=== PATIENT | female | born 1950 | race Caucasian/White ===

== ENCOUNTER 2016-06-04 22:58 | Emergency (ER) | payer MEDICARE, OTHER ==
[2016-06-04] MEDS ORDERED: Diltiazem 25 MG/5 ML SDV IVPUSH ONE (23:14)
[2016-06-04] MEDS ORDERED: Sodium Chloride 0.9% 1,000 ML IV SCH (23:15)
[2016-06-04 23:32] VITALS: BP 137/85
--- NOTE | 2016-06-05 00:01 | EDM.PDOC ---
ED HISTORY OF PRESENT ILLNESS - General Chief Complaint: Cardiovascular Problem Stated Complaint: HEART PROBLEM Time Seen by Provider: 06/04/16 23:00 Source: Reports: Patient, Family History Limitations: Reports: No limitations - History of Present Illness INITIAL COMMENTS - FREE TEXT/NARRATIVE: 66 years old w f with a h/o intermittant a fib came to the ed because of palpitations whic she thinks she went in a fib again. Her initial ekg showed Irr irr heart beet between 127-145. Pt denied other constitutional symptoms. No N/V/D Symptom Onset Date: 06/04/16 Symptom Onset Time: 22:30 Timing/Duration: Reports: Hour(s):, Sudden onset Severity: mild Location, General: Reports: chest Improves with: Reports: None Worsens with: Reports: None Associated Symptoms: Reports: denies other symptoms - Related Data Allergies/ADRs: Allergies Allergy/AdvReac Type Severity Reaction Status Date / Time No Known Allergies Allergy Verified 06/04/16 23:14 Home Meds: Home Meds Aspirin 325 mg PO BEDTIME 06/04/16 [History] Hydrochlorothiazide 12.5 mg PO DAILY PRN 06/04/16 [History] Social & Family History - Tobacco Use Smoking Status *Q: Never Smoker Second Hand Smoke Exposure: No - Caffeine Use Caffeine Use: Reports: Coffee - Recreational Drug Use Recreational Drug Use: No ED ROS GENERAL - Review of Systems Review Of Systems: See Below Constitutional: Reports: no symptoms HEENT: Reports: No symptoms Respiratory: Reports: No Symptoms Cardiovascular: Reports: Palpitations Endocrine: Reports: no symptoms GI/Abdominal: Reports: No symptoms : Reports: no symptoms Musculoskeletal: Reports: no symptoms Skin: Reports: no symptoms Neurological: Reports: No Symptoms Psychiatric: Reports: No symptoms Hematologic/Lymphatic: Reports: no symptoms Immunologic: Reports: no symptoms ED EXAM, GENERAL - Physical Exam Exam: See Below Exam Limited By: No limitations General Appearance: alert, WD/WN, mild distress, thin Eye Exam: bilateral eye: normal inspection Ears: normal external exam Ear Exam: bilateral ear: auricle normal Nose: normal inspection, normal mucosa Throat/Mouth: Normal inspection, Normal lips, Normal teeth Head: atraumatic, normocephalic Neck: normal inspection, supple, non-tender, full range of motion Respiratory/Chest: no respiratory distress, lungs clear, normal breath sounds Cardiovascular: irregularly irregular Peripheral Pulses: 2+: femoral (L), femoral (R) GI/Abdominal: normal bowel sounds, soft, non tender, no organomegaly (Female) Exam: Deferred Rectal (Female) Exam: Deferred Back Exam: normal inspection, full range of motion Extremities: normal inspection Neurological: alert, oriented, CN II-XII intact, normal cognition, normal gait, no motor/sensory deficits Psychiatric: normal affect, normal mood Skin Exam: Warm, Dry, Intact, Normal color, No rash Lymphatic: no adenopathy EKG INTERPRETATION EKG Date: 06/04/16 Time: 23:10 Rhythm: a-fib Rate (beats/min): 128 [place]: normal P-wave: absent QRS: normal ST-T: normal QT: normal Comparison: NA - no prior EKG Course - Vital Signs Text/Narrative:: 66 years old w f with a h/o intermittant a fib came to the ed because of palpitations whic she thinks she went in a fib again. Her initial ekg showed Irr irr heart beet between 128. Pt denied other constitutional symptoms. No N/V/ D PE: AQm fib with RVR ECG: Please see note a areli a fib with RVR Lab: potassium 3.5 Mg 2.2 Impression: Hypokalemia, A fib with RVR Tx: Potassium 40 MEQ Reexam:NSR ECG: rate 72 NSR PA 198 QT 421 QTc 461 Plan: D/C home with instructions Last Recorded V/S: Last Vital Signs Temp 36.3 C 06/04/16 23:00 Pulse 120 H 06/04/16 23:00 Resp 18 06/04/16 23:00 BP 137/85 06/04/16 23:31 Pulse Ox 100 06/04/16 23:00 - Orders/Labs/Meds Orders: Active Orders 24 hr Category Date Time Status EKG Documentation Completion [RC] ASDIRECTED Care 06/04/16 23:03 Active EKG Documentation Completion [RC] ASDIRECTED Care 06/05/16 01:23 Active Sodium Chloride 0.9% [Normal Saline] 1,000 ml Med 06/04/16 23:15 Active IV ASDIRECTED EKG 12 Lead [EK] Routine Ther 06/04/16 23:01 Ordered EKG 12 Lead [EK] Routine Ther 06/05/16 01:14 Ordered Medication Orders Sodium Chloride (Normal Saline) 1,000 mls @ 125 mls/hr IV ASDIRECTED LUAN Last Admin: 06/04/16 23:30 Dose: 125 mls/hr Labs: Laboratory Tests 06/04/16 06/04/16 06/04/16 Range/Units 23:30 23:30 23:30 WBC 6.7 (4.5-12.0) X10-3/uL RBC 4.63 (3.23-5.20) x10(6)uL Hgb 14.0 (11.5-15.5) g/dL Hct 42.6 (30.0-51.3) % MCV 92.0 (80-96) fL MCH 30.2 (27.7-33.6) pg MCHC 32.8 (32.2-35.4) g/dL RDW 13.1 (11.5-15.5) % Plt Count 290 (125-369) X10(3)uL MPV 7.8 (7.4-10.4) fL Neut % (Auto) 53.0 (46-82) % Lymph % (Auto) 36.9 (13-37) % [place] % (Auto) 7.1 (4-12) % Eos % (Auto) 2 (1.0-5.0) % Baso % (Auto) 1 (0-2) % Neut # (Auto) 3.5 (1.6-8.3) # Lymph # (Auto) 2.5 (0.6-5.0) # [place] # (Auto) 0.5 (0.0-1.3) # Eos # (Auto) 0.1 (0.0-0.8) # Baso # (Auto) 0.1 (0.0-0.2) # Sodium 141 (135-145) mmol/L Potassium 3.4 L (3.5-5.3) mmol/L Chloride 104 (100-110) mmol/L Carbon Dioxide 27 (23-29) mmol/L BUN 23 (8-23) mg/dL Creatinine 0.6 (0.6-1.3) mg/dL Est Cr Clr Drug Dosing TNP Estimated GFR (MDRD) > 60 (>60) BUN/Creatinine Ratio 38.3 H (9-20) Glucose 125 H (80-116) mg/dL Calcium 9.8 (8.6-10.2) mg/dL Magnesium 2.2 (1.8-2.5) mg/dL TSH, Ultra Sensitive 2.37 (0.4-5.5) nlU/mL Meds: Medications Generic Name Dose Route Start Last Admin Trade Name Tylerq PRN Reason Stop Dose Admin Sodium Chloride 1,000 mls @ 125 mls/hr 06/04/16 23:15 06/04/16 23:30 Normal Saline IV 125 mls/hr ASDIRECTED LUAN Administration Discontinued Medications Generic Name Dose Route Start Last Admin Trade Name Freq PRN Reason Stop Dose Admin Diltiazem HCl 20 mg 06/04/16 23:14 06/04/16 23:31 Diltiazem IVPUSH 06/04/16 23:15 20 mg ONETIME ONE Administration Potassium Chloride 40 meq 06/05/16 00:07 06/05/16 00:13 Klor-Con M20 PO 06/05/16 00:08 40 meq ONETIME ONE Administration Potassium Chloride 40 meq 06/05/16 01:25 Klor-Con M20 PO 06/05/16 01:26 ONETIME ONE Departure - Departure Time of Disposition: 01:26 Disposition: Home, Self-Care 01 Condition: good Clinical Impression: A-fib Qualifiers: Atrial fibrillation type: paroxysmal Qualified Code(s): I48.0 - Paroxysmal atrial fibrillation Referrals: PCP,Not In Area [Primary Care Provider] - Forms: ED Department Discharge Additional Instructions: Please take the potassium 40 MEQ at 6 am, Please f/u please come back if your symptoms get worse acutely. Please check the potassium level in 3 days. - My Orders Last 24 Hours: My Active Orders 06/04/16 23:01 EKG 12 Lead [EK] Routine 06/04/16 23:03 EKG Documentation Completion [RC] ASDIRECTED 06/04/16 23:15 Sodium Chloride 0.9% [Normal Saline] 1,000 ml IV ASDIRECTED 06/05/16 01:14 EKG 12 Lead [EK] Routine 06/05/16 01:23 EKG Documentation Completion [RC] ASDIRECTED - Assessment/Plan Last 24 Hours: My Active Orders 06/04/16 23:01 EKG 12 Lead [EK] Routine 06/04/16 23:03 EKG Documentation Completion [RC] ASDIRECTED 06/04/16 23:15 Sodium Chloride 0.9% [Normal Saline] 1,000 ml IV ASDIRECTED 06/05/16 01:14 EKG 12 Lead [EK] Routine 06/05/16 01:23 EKG Documentation Completion [RC] ASDIRECTED
[2016-06-05] MEDS ORDERED: Potassium Chloride 20 MEQ Tab.ER PO ONE ×2 (00:07→01:25)
== END 2016-06-05 01:35 | disposition home or self-care (01) ==
LOC: FB.ED 22:58
DX: I48.0 Paroxysmal atrial fibrillation (principal); Z79.899 Other long term (current) drug therapy; Z79.82 Long term (current) use of aspirin
CPT/HCPCS: 36415; 80048; 83735; 84443; 85025; 93005; 96361; 96374; 99285; A9270; J7040; 99284; J3490

== ENCOUNTER 2020-10-21 20:12 | Inpatient (IN) | payer MEDICARE, OTHER ==
[2020-10-21] MEDS ORDERED: Ondansetron 4 MG/2 ML SDV IVPUSH STA (20:38)
[2020-10-21] MEDS ORDERED: Ketorolac 30 MG/ML SDV IVPUSH STA (20:38)
[2020-10-21] MEDS ORDERED: Morphine 2 MG/ML SYRINGE IVPUSH STA (20:38)
[2020-10-21] MEDS ORDERED: Alum Hydroxide/Mag Hydroxide 15 ML, Lidocaine 2% 15 ML PO ONE ×2 (20:40)
[2020-10-21] MEDS ORDERED: Sodium Chloride 0.9% 1,000 ML IV SCH (20:45)
[2020-10-21] MEDS ORDERED: Iopamidol 755 Mg/ML 75 ML Bottle IV ONE (21:11)
--- NOTE | 2020-10-21 21:33 | EDM.PDOC ---
ED HPI GENERAL MEDICAL PROBLEM - General Chief Complaint: Abdominal Pain Stated Complaint: STOMACH PAIN Time Seen by Provider: 10/21/20 20:20 Source of Information: Reports: Patient, Family History Limitations: Reports: No Limitations - History of Present Illness INITIAL COMMENTS - FREE TEXT/NARRATIVE: Patient presented to the ED because of abdominal pain which started 3 days ago and got worse today. The pain is over the epigastric area,sharp, 8/10 with associated nausea but no vomiting. There is no fever or chills, no urinary symptoms. - Related Data Allergies Allergy/AdvReac Type Severity Reaction Status Date / Time No Known Allergies Allergy Verified 10/21/20 21:52 Home Meds: Home Meds .Calcium 1 dose PO DAILY 10/21/20 [History] .Cayenne Pepper 1 dose PO DAILY 10/21/20 [History] .Coq10 1 dose PO DAILY 10/21/20 [History] .Niacin 1 dose PO DAILY 10/21/20 [History] .Potassium (Otc) 1 dose PO DAILY 10/21/20 [History] .Tumeric 1 dose PO DAILY 10/21/20 [History] .Vitamin D 1 dose PO DAILY 10/21/20 [History] .Zinc 1 dose PO DAILY 10/21/20 [History] Social & Family History - Caffeine Use Caffeine Use: Reports: Coffee ED ROS GENERAL - Review of Systems Review Of Systems: See Below Constitutional: Reports: No Symptoms HEENT: Reports: No Symptoms Respiratory: Reports: No Symptoms Cardiovascular: Reports: No Symptoms Endocrine: Reports: No Symptoms GI/Abdominal: Reports: Abdominal Pain, Nausea Musculoskeletal: Reports: No Symptoms Skin: Reports: No Symptoms Neurological: Reports: No Symptoms Psychiatric: Reports: No Symptoms ED EXAM, GI/ABD - Physical Exam Exam: See Below Exam Limited By: No Limitations General Appearance: Alert, No Apparent Distress Ears: Normal External Exam, Normal [place] Nose: Normal Inspection, Normal Mucosa, No Blood Throat/Mouth: Normal Inspection, Normal Lips, Normal Teeth, Normal Gums Head: Atraumatic, Normocephalic Neck: Normal Inspection, Supple, Non-Tender, Full Range of Motion Respiratory/Chest: No Respiratory Distress, Lungs Clear, Normal Breath Sounds, No Accessory Muscle Use, Chest Non-Tender Cardiovascular: Normal Peripheral Pulses, Regular Rate, Rhythm, No Edema, No Gallop, No JVD, No Murmur, No Rub GI/Abdominal Exam: Normal Bowel Sounds, Soft, No Organomegaly, Other (Epigastric, RUQ & LUQ tenderness) Back Exam: Normal Inspection, Full Range of Motion Extremities: Normal Inspection, Normal Range of Motion, Non-Tender Neurological: Alert, Oriented, CN II-XII Intact, Normal Cognition Psychiatric: Normal Affect Course - Vital Signs Text/Narrative:: Lab/CT-abd/pelvis result was reviewed and discussed with patient NS 1 L bolus Zofran 4 mg IV x1 Toradol 30 mg IV x1 Morphine 2 mg IV x 2 doses NS @ 125ml/hr Last Recorded V/S: Last Vital Signs Temp 36.2 C 10/21/20 20:15 Pulse 81 10/21/20 20:15 Resp 18 10/21/20 20:15 BP 148/88 H 10/21/20 22:06 Pulse Ox 97 10/21/20 20:15 - Orders/Labs/Meds Orders: Active Orders 24 hr Category Date Time Status Abdomen Pelvis w Cont [CT] Stat Exams 10/21/20 20:32 Taken CORONAVIRUS COVID-19 K[place] [MOLEC] Routine Lab 10/21/20 22:55 Received CULTURE URINE [RM] Stat Lab 10/21/20 20:40 Received Sodium Chloride 0.9% [Normal Saline] 1,000 ml Med 10/21/20 20:45 Active IV ASDIRECTED Sodium Chloride 0.9% [Saline Flush] Med 10/21/20 20:32 Active 10 ml FLUSH ASDIRECTED PRN Saline Lock Insert [OM.PC] Routine Oth 10/21/20 20:32 Ordered Medication Orders Sodium Chloride (Normal Saline) 1,000 mls @ 999 mls/hr IV ASDIRECTED LUAN Last Admin: 10/21/20 21:00 Dose: 999 mls/hr Documented by: SHONA Sodium Chloride (Sodium Chloride 0.9% 10 Ml Syringe) 10 ml FLUSH ASDIRECTED PRN PRN Reason: Keep Vein Open Last Admin: 10/21/20 22:00 Dose: 10 ml Documented by: CHARLES Labs: Laboratory Tests 10/21/20 10/21/20 10/21/20 Range/Units 20:40 20:40 20:40 WBC 7.4 (3.0-10.3) x10-3/uL RBC 4.20 (3.60-5.20) x10(6)uL Hgb 13.1 (11.4-15.5) g/dL Hct 38.9 (34.2-48.2) % MCV 92.5 (76.7-100.5) fL MCH 31.2 (23.9-33.9) pg MCHC 33.7 (31.9-34.8) g/dL RDW 13.4 (12.3-16.5) % Plt Count 278 (151-488) x10(3)uL MPV 7.2 (7.1-12.4) fL Neut % (Auto) 65.5 (30.8-76.2) % Lymph % (Auto) 25.7 (18.4-52.1) % [place] % (Auto) 6.1 (4.4-15.7) % Eos % (Auto) 1.8 (0.6-8.1) % Baso % (Auto) 0.9 (0.2-1.5) % Neut # (Auto) 4.9 (1.5-6.3) x10-3/uL Lymph # (Auto) 1.9 (1.0-4.4) x10-3/uL [place] # (Auto) 0.5 (0.3-1.0) x10-3/uL Eos # (Auto) 0.1 (0.0-0.8) x10-3/uL Baso # (Auto) 0.1 (0.0-0.1) x10-3/uL Sodium 145 (135-145) mmol/L Potassium 3.8 (3.5-5.3) mmol/L Chloride 104 (100-110) mmol/L Carbon Dioxide 30 (21-32) mmol/L BUN 25 H (7-18) mg/dL Creatinine 0.9 (0.55-1.02) mg/dL Est Cr Clr Drug Dosing TNP Estimated GFR (MDRD) > 60 (>60) BUN/Creatinine Ratio 27.8 H (9-20) Glucose 118 H (80-116) mg/dL Calcium 9.7 (8.6-10.2) mg/dL Total Bilirubin 0.4 (0.1-1.3) mg/dL AST 23 (5-25) IU/L ALT 32 (12-36) U/L Alkaline Phosphatase 62 (56-112) IU/L Total Protein 7.4 (6.0-8.0) g/dL Albumin 4.0 (3.2-4.6) g/dL Globulin 3.4 g/dL Albumin/Globulin Ratio 1.2 Amylase 41 (25-115) U/L Lipase (73-393) U/L Urine Color Yellow (YELLOW) Urine Appearance Slightly cloudy (CLEAR) Urine pH 5.0 (5.0-6.5) Ur Specific [place] 1.025 (1.010-1.025) Urine Protein Negative (NEGATIVE) mg/dL Urine Glucose (UA) Normal (NORMAL) mg/dL Urine Ketones Negative (NEGATIVE) mg/dL Urine Occult Blood Moderate H (NEGATIVE) Urine Nitrite Negative (NEGATIVE) Urine Bilirubin Negative (NEGATIVE) Urine Urobilinogen Normal (NEGATIVE) mg/dL Ur Leukocyte Esterase Small H (NEGATIVE) Urine RBC 5-10 H (0-5) Urine WBC 5-10 H (0-5) Ur Squamous Epith Cells Moderate H (NS,R,O) Urine Bacteria Moderate H (NS) Urine Mucus Few H (NS) 10/21/20 Range/Units 20:40 WBC (3.0-10.3) x10-3/uL RBC (3.60-5.20) x10(6)uL Hgb (11.4-15.5) g/dL Hct (34.2-48.2) % MCV (76.7-100.5) fL MCH (23.9-33.9) pg MCHC (31.9-34.8) g/dL RDW (12.3-16.5) % Plt Count (151-488) x10(3)uL MPV (7.1-12.4) fL Neut % (Auto) (30.8-76.2) % Lymph % (Auto) (18.4-52.1) % [place] % (Auto) (4.4-15.7) % Eos % (Auto) (0.6-8.1) % Baso % (Auto) (0.2-1.5) % Neut # (Auto) (1.5-6.3) x10-3/uL Lymph # (Auto) (1.0-4.4) x10-3/uL [place] # (Auto) (0.3-1.0) x10-3/uL Eos # (Auto) (0.0-0.8) x10-3/uL Baso # (Auto) (0.0-0.1) x10-3/uL Sodium (135-145) mmol/L Potassium (3.5-5.3) mmol/L Chloride (100-110) mmol/L Carbon Dioxide (21-32) mmol/L BUN (7-18) mg/dL Creatinine (0.55-1.02) mg/dL Est Cr Clr Drug Dosing Estimated GFR (MDRD) (>60) BUN/Creatinine Ratio (9-20) Glucose (80-116) mg/dL Calcium (8.6-10.2) mg/dL Total Bilirubin (0.1-1.3) mg/dL AST (5-25) IU/L ALT (12-36) U/L Alkaline Phosphatase (56-112) IU/L Total Protein (6.0-8.0) g/dL Albumin (3.2-4.6) g/dL Globulin g/dL Albumin/Globulin Ratio Amylase (25-115) U/L Lipase 65 L (73-393) U/L Urine Color (YELLOW) Urine Appearance (CLEAR) Urine pH (5.0-6.5) Ur Specific [place] (1.010-1.025) Urine Protein (NEGATIVE) mg/dL Urine Glucose (UA) (NORMAL) mg/dL Urine Ketones (NEGATIVE) mg/dL Urine Occult Blood (NEGATIVE) Urine Nitrite (NEGATIVE) Urine Bilirubin (NEGATIVE) Urine Urobilinogen (NEGATIVE) mg/dL Ur Leukocyte Esterase (NEGATIVE) Urine RBC (0-5) Urine WBC (0-5) Ur Squamous Epith Cells (NS,R,O) Urine Bacteria (NS) Urine Mucus (NS) Meds: Medications Generic Name Dose Route Start Last Admin Trade Name Freq PRN Reason Stop Dose Admin Sodium Chloride 1,000 mls @ 999 mls/hr 10/21/20 20:45 10/21/20 21:00 Normal Saline IV 999 mls/hr ASDIRECTED LUAN Administration Sodium Chloride 10 ml 10/21/20 20:32 10/21/20 22:00 Sodium Chloride 0.9% 10 Ml Syringe FLUSH 10 ml ASDIRECTED PRN Administration Keep Vein Open Discontinued Medications Generic Name Dose Route Start Last Admin Trade Name [place] PRN Reason Stop Dose Admin Ceftriaxone Sodium Confirm 10/21/20 22:46 Ceftriaxone 1 Gm Vial Administered 10/21/20 22:47 Dose 1 gm .ROUTE .STK-MED ONE Al Hydroxide/Mg Hydroxide 15 0 ml 10/21/20 20:40 10/21/20 20:56 ml/ Lidocaine HCl 15 ml PO 10/21/20 20:41 30 ml ONETIME ONE Administration Iopamidol 75 ml 10/21/20 21:11 10/21/20 21:19 Iopamidol 755 Mg/Ml 75 Ml Bottle IV 10/21/20 21:12 75 ml ONETIME ONE Administration Ketorolac Tromethamine 30 mg 10/21/20 20:38 10/21/20 21:24 Ketorolac 30 Mg/Ml Sdv IVPUSH 10/21/20 20:39 30 mg NOW STA Administration Labetalol HCl 20 mg 10/21/20 21:50 10/21/20 21:55 Labetalol 20 Mg/4 Ml Syringe IVPUSH 10/21/20 21:51 20 mg NOW STA Administration Protocol Morphine Sulfate 2 mg 10/21/20 20:38 10/21/20 21:30 Morphine 2 Mg/Ml Syringe IVPUSH 10/21/20 20:39 2 mg NOW STA Administration Morphine Sulfate Confirm 10/21/20 22:46 Morphine 2 Mg/Ml Syringe Administered 10/21/20 22:47 Dose 2 mg .ROUTE .STK-MED ONE Ondansetron HCl 4 mg 10/21/20 20:38 10/21/20 21:11 Ondansetron 4 Mg/2 Ml Sdv IVPUSH 10/21/20 20:39 4 mg NOW STA Administration Departure - Departure Time of Disposition: 22:30 Disposition: Refer to Observation Condition: Good Clinical Impression: Abdominal pain, UTI (urinary tract infection) - Discharge Information Referrals: PCP,Not In Area [Primary Care Provider] - Forms: ED Department Discharge Sepsis Event Note (ED) - Focused Exam Vital Signs: Vital Signs Temp Pulse Resp BP Pulse Ox 10/21/20 22:06 148/88 H 10/21/20 20:15 36.2 C 81 18 194/107 H 97 - My Orders Last 24 Hours: My Active Orders 10/21/20 20:32 Abdomen Pelvis w Cont [CT] Stat Sodium Chloride 0.9% [Saline Flush] 10 ml FLUSH ASDIRECTED PRN Saline Lock Insert [OM.PC] Routine 10/21/20 20:40 CULTURE URINE [RM] Stat 10/21/20 20:45 Sodium Chloride 0.9% [Normal Saline] 1,000 ml IV ASDIRECTED 10/21/20 22:55 CORONAVIRUS COVID-19 K[facility]TON [MOLEC] Routine - Assessment/Plan Last 24 Hours: My Active Orders 10/21/20 20:32 Abdomen Pelvis w Cont [CT] Stat Sodium Chloride 0.9% [Saline Flush] 10 ml FLUSH ASDIRECTED PRN Saline Lock Insert [OM.PC] Routine 10/21/20 20:40 CULTURE URINE [RM] Stat 10/21/20 20:45 Sodium Chloride 0.9% [Normal Saline] 1,000 ml IV ASDIRECTED 10/21/20 22:55 CORONAVIRUS COVID-19 KELTON [MOLEC] Routine
[2020-10-21] MEDS ORDERED: Labetalol 20 MG/4 ML Syringe IVPUSH STA (21:50)
[2020-10-21] MEDS: Sodium Chloride 0.9% 10 ML Syringe FLUSH PRN (22:00)
[2020-10-21] MEDS: Sodium Chloride 0.9% 1,000 ML IV SCH (22:45)
[2020-10-21] MEDS ORDERED: cefTRIAXone 2 GM Vial IVPUSH ONE (22:46)
[2020-10-21] MEDS ORDERED: Morphine 2 MG/ML SYRINGE ONE (22:46)
[2020-10-21] MEDS ORDERED: cefTRIAXone 1 GM Vial ONE (22:46)
[2020-10-21] MEDS ORDERED: Enoxaparin 40 MG/0.4 ML Syringe SUBCUT SCH (23:45)
[2020-10-22] MEDS: cefTRIAXone 1 GM in Sodium Chloride 0.9% 50 ML IV SCH ×2 (00:24→07:32)
[2020-10-22] MEDS: Morphine 2 MG/ML SYRINGE IVPUSH PRN ×5 (00:26→20:28)
[2020-10-22] MEDS: Ondansetron 4 MG/2 ML SDV IV PRN ×4 (02:11→22:51)
[2020-10-22] MEDS: Sodium Chloride 0.9% 1,000 ML IV SCH ×3 (06:45→22:52)
[2020-10-22] MEDS ORDERED: cefTRIAXone 1 GM in Sodium Chloride 0.9% 50 ML IV SCH (09:00)
[2020-10-22] MEDS: Ketorolac 30 MG/ML SDV IVPUSH PRN ×2 (09:49→16:47)
--- NOTE | 2020-10-22 18:27 | PCM.HP.2 ---
H&P History of Present Illness - General Date of Service: 10/22/20 Admit Problem/Dx: Admission Diagnosis/Problem Admission Diagnosis/Problem Small bowel obstruction Source of Information: Patient, Provider History Limitations: Reports: No Limitations - History of Present Illness Initial Comments - Free Text/Narative: Mayela presented to the ED because of abdominal pain which started 3 days ago, early Tuesday am and got worse today. Has epigastric pain, describes as sharp, and twisting, rates 8/10 with associated nausea but no vomiting or diarrhea, tends to be more constipated. There is no fever or chills, no urinary symptoms. She ate yesterday and did not vomit. 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 She has precancerous polyps found on colonoscopy 09/2018, due to have repeat colonoscopy in 09/2021. No cough, shortness of breath, chest pain. She states she has had similar episodes before but she backed off on her eating and they resolved on their own without going to the hospital. Middle Abdomen Pain Score (Numeric/FACES): 4 Abdominal Pain Score (Numeric/FACES): 4 - Related Data Allergies/Adverse Reactions: Allergies Allergy/AdvReac Type Severity Reaction Status Date / Time No Known Allergies Allergy Verified 10/22/20 01:27 Home Medications: Home Meds .Calcium 1 dose PO DAILY 10/21/20 [History] .Cayenne Pepper 1 dose PO DAILY 10/21/20 [History] .Coq10 1 dose PO DAILY 10/21/20 [History] .Niacin 1 dose PO DAILY 10/21/20 [History] .Potassium (Otc) 1 dose PO DAILY 10/21/20 [History] .Tumeric 1 dose PO DAILY 10/21/20 [History] .Vitamin D 1 dose PO DAILY 10/21/20 [History] .Zinc 1 dose PO DAILY 10/21/20 [History] Aspirin 650 mg PO BEDTIME 10/22/20 [History] Coffee Xt/Phosphatidyl Serine [Neuriva Original 100-100Mg Cap] 1 cap PO DAILY 10/22/20 [History] Propylene Glycol/PEG 400/Pf [Systane 0.3-0.4% Eye Drop] 1 drop EYEBOTH Q4H PRN 10/22/20 [History] Vit C/E/Zn/Coppr/Lutein/Zeaxan [Preservision Areds 2 Softgel] 1 cap PO DAILY 10/22/20 [History] Past Medical History HEENT History: Reports: Hard of Hearing, Other (See Below) Other HEENT History: Wears bilateral hearing aides. Cardiovascular History: Reports: Afib, Other (See Below) Other Cardiovascular History: States recent cardiac work up was negative. 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 - Past Surgical History HEENT Surgical History: Reports: Tonsillectomy GI Surgical History: Reports: Appendectomy, Colonoscopy, Hernia, Abdominal, Hernia, Inguinal, Polypectomy, Other (See Below) Other GI Surgeries/Procedures: Bowel resection. Female Surgical History: Reports: Hysterectomy, Other (See Below) Other Female Surgeries/Procedures: Ovarian cyst. Social & Family History - Tobacco Use Tobacco Use Status *Q: Former Tobacco User Used Tobacco, but Quit: Yes Month/Year Tobacco Last Used: 07.27.1969 - Caffeine Use Caffeine Use: Reports: Coffee, Soda, Tea - Recreational Drug Use Recreational Drug Use: No H&P Review of Systems - Review of Systems: Review Of Systems: Comprehensive ROS is negative, except as noted in HPI. Exam - Exam Exam: See Below - Vital Signs Vital Signs: Last Vital Signs Temp 98.3 F 10/22/20 16:00 Pulse 78 10/22/20 16:00 Resp 18 10/22/20 16:00 BP 172/95 H 10/22/20 16:00 Pulse Ox 95 10/22/20 16:00 Weight: 157 lb 14.4 oz - Exam General: Alert, Oriented, Cooperative HEENT: PERRLA, EOMI, Hearing Intact, Mucosa Moist & [place] Neck: Trachea Midline Lungs: Clear to Auscultation, Normal Respiratory Effort Cardiovascular: Regular Rate, Regular Rhythm GI/Abdominal Exam: Soft, No Distention, Guarding, Tender (epigastic but also has diffuse pain), Abnormal Bowel Sounds (high pitched BS x 3, hypoactive x 1(LLQ)). No: Rebound (Female) Exam: Deferred Rectal (Female) Exam: Deferred Extremities: No Pedal Edema, Normal Capillary Refill Peripheral Pulses: 2+: Radial (L), Radial (R), Posterior Tibial (L), Posterior Tibial (R), Dorsalis Pedis (L) Skin: Warm, Dry, Intact Neurological: Cranial Nerves Intact, Normal Speech, Normal Tone - Patient Data Lab Results Last 24 hrs: Laboratory Results - last 24 hr 10/21/20 10/21/20 10/21/20 Range/Units 20:40 20:40 20:40 WBC 7.4 (3.0-10.3) x10-3/uL RBC 4.20 (3.60-5.20) x10(6)uL Hgb 13.1 (11.4-15.5) g/dL Hct 38.9 (34.2-48.2) % MCV 92.5 (76.7-100.5) fL MCH 31.2 (23.9-33.9) pg MCHC 33.7 (31.9-34.8) g/dL RDW 13.4 (12.3-16.5) % Plt Count 278 (151-488) x10(3)uL MPV 7.2 (7.1-12.4) fL Neut % (Auto) 65.5 (30.8-76.2) % Lymph % (Auto) 25.7 (18.4-52.1) % [place] % (Auto) 6.1 (4.4-15.7) % Eos % (Auto) 1.8 (0.6-8.1) % Baso % (Auto) 0.9 (0.2-1.5) % Neut # (Auto) 4.9 (1.5-6.3) x10-3/uL Lymph # (Auto) 1.9 (1.0-4.4) x10-3/uL [place] # (Auto) 0.5 (0.3-1.0) x10-3/uL Eos # (Auto) 0.1 (0.0-0.8) x10-3/uL Baso # (Auto) 0.1 (0.0-0.1) x10-3/uL Sodium 145 (135-145) mmol/L Potassium 3.8 (3.5-5.3) mmol/L Chloride 104 (100-110) mmol/L Carbon Dioxide 30 (21-32) mmol/L BUN 25 H (7-18) mg/dL Creatinine 0.9 (0.55-1.02) mg/dL Est Cr Clr Drug Dosing TNP Estimated GFR (MDRD) > 60 (>60) BUN/Creatinine Ratio 27.8 H (9-20) Glucose 118 H (80-116) mg/dL Calcium 9.7 (8.6-10.2) mg/dL Total Bilirubin 0.4 (0.1-1.3) mg/dL AST 23 (5-25) IU/L ALT 32 (12-36) U/L Alkaline Phosphatase 62 (56-112) IU/L Total Protein 7.4 (6.0-8.0) g/dL Albumin 4.0 (3.2-4.6) g/dL Globulin 3.4 g/dL Albumin/Globulin Ratio 1.2 Amylase 41 (25-115) U/L Lipase (73-393) U/L Urine Color Yellow (YELLOW) Urine Appearance Slightly cloudy (CLEAR) Urine pH 5.0 (5.0-6.5) Ur Specific [place] 1.025 (1.010-1.025) Urine Protein Negative (NEGATIVE) mg/dL Urine Glucose (UA) Normal (NORMAL) mg/dL Urine Ketones Negative (NEGATIVE) mg/dL Urine Occult Blood Moderate H (NEGATIVE) Urine Nitrite Negative (NEGATIVE) Urine Bilirubin Negative (NEGATIVE) Urine Urobilinogen Normal (NEGATIVE) mg/dL Ur Leukocyte Esterase Small H (NEGATIVE) Urine RBC 5-10 H (0-5) Urine WBC 5-10 H (0-5) Ur Squamous Epith Cells Moderate H (NS,R,O) Urine Bacteria Moderate H (NS) Urine Mucus Few H (NS) SARS-CoV-2 RNA (KELTON) (NEGATIVE) 10/21/20 10/21/20 10/22/20 Range/Units 20:40 22:55 06:15 WBC 6.2 (3.0-10.3) x10-3/uL RBC 3.99 (3.60-5.20) x10(6)uL Hgb 12.2 (11.4-15.5) g/dL Hct 37.3 (34.2-48.2) % MCV 93.5 (76.7-100.5) fL MCH 30.7 (23.9-33.9) pg MCHC 32.8 (31.9-34.8) g/dL RDW 13.5 (12.3-16.5) % Plt Count 262 (151-488) x10(3)uL MPV 7.5 (7.1-12.4) fL Neut % (Auto) 70.1 (30.8-76.2) % Lymph % (Auto) 21.3 (18.4-52.1) % [place] % (Auto) 6.5 (4.4-15.7) % Eos % (Auto) 1.4 (0.6-8.1) % Baso % (Auto) 0.7 (0.2-1.5) % Neut # (Auto) 4.4 (1.5-6.3) x10-3/uL Lymph # (Auto) 1.3 (1.0-4.4) x10-3/uL [place] # (Auto) 0.4 (0.3-1.0) x10-3/uL Eos # (Auto) 0.1 (0.0-0.8) x10-3/uL Baso # (Auto) 0.0 (0.0-0.1) x10-3/uL Sodium (135-145) mmol/L Potassium (3.5-5.3) mmol/L Chloride (100-110) mmol/L Carbon Dioxide (21-32) mmol/L BUN (7-18) mg/dL Creatinine (0.55-1.02) mg/dL Est Cr Clr Drug Dosing Estimated GFR (MDRD) (>60) BUN/Creatinine Ratio (9-20) Glucose (80-116) mg/dL Calcium (8.6-10.2) mg/dL Total Bilirubin (0.1-1.3) mg/dL AST (5-25) IU/L ALT (12-36) U/L Alkaline Phosphatase (56-112) IU/L Total Protein (6.0-8.0) g/dL Albumin (3.2-4.6) g/dL Globulin g/dL Albumin/Globulin Ratio Amylase (25-115) U/L Lipase 65 L (73-393) U/L Urine Color (YELLOW) Urine Appearance (CLEAR) Urine pH (5.0-6.5) Ur Specific [place] (1.010-1.025) Urine Protein (NEGATIVE) mg/dL Urine Glucose (UA) (NORMAL) mg/dL Urine Ketones (NEGATIVE) mg/dL Urine Occult Blood (NEGATIVE) Urine Nitrite (NEGATIVE) Urine Bilirubin (NEGATIVE) Urine Urobilinogen (NEGATIVE) mg/dL Ur Leukocyte Esterase (NEGATIVE) Urine RBC (0-5) Urine WBC (0-5) Ur Squamous Epith Cells (NS,R,O) Urine Bacteria (NS) Urine Mucus (NS) SARS-CoV-2 RNA (KELTON) Negative (NEGATIVE) 10/22/20 Range/Units 06:15 WBC (3.0-10.3) x10-3/uL RBC (3.60-5.20) x10(6)uL Hgb (11.4-15.5) g/dL Hct (34.2-48.2) % MCV (76.7-100.5) fL MCH (23.9-33.9) pg MCHC (31.9-34.8) g/dL RDW (12.3-16.5) % Plt Count (151-488) x10(3)uL MPV (7.1-12.4) fL Neut % (Auto) (30.8-76.2) % Lymph % (Auto) (18.4-52.1) % [place] % (Auto) (4.4-15.7) % Eos % (Auto) (0.6-8.1) % Baso % (Auto) (0.2-1.5) % Neut # (Auto) (1.5-6.3) x10-3/uL Lymph # (Auto) (1.0-4.4) x10-3/uL [place] # (Auto) (0.3-1.0) x10-3/uL Eos # (Auto) (0.0-0.8) x10-3/uL Baso # (Auto) (0.0-0.1) x10-3/uL Sodium 147 H (135-145) mmol/L Potassium 3.7 (3.5-5.3) mmol/L Chloride 109 D (100-110) mmol/L Carbon Dioxide 30 (21-32) mmol/L BUN 18 (7-18) mg/dL Creatinine 0.8 (0.55-1.02) mg/dL Est Cr Clr Drug Dosing 57.20 Estimated GFR (MDRD) > 60 (>60) BUN/Creatinine Ratio 22.5 H (9-20) Glucose 122 H (80-116) mg/dL Calcium 8.6 (8.6-10.2) mg/dL Total Bilirubin (0.1-1.3) mg/dL AST (5-25) IU/L ALT (12-36) U/L Alkaline Phosphatase (56-112) IU/L Total Protein (6.0-8.0) g/dL Albumin (3.2-4.6) g/dL Globulin g/dL Albumin/Globulin Ratio Amylase (25-115) U/L Lipase (73-393) U/L Urine Color (YELLOW) Urine Appearance (CLEAR) Urine pH (5.0-6.5) Ur Specific [place] (1.010-1.025) Urine Protein (NEGATIVE) mg/dL Urine Glucose (UA) (NORMAL) mg/dL Urine Ketones (NEGATIVE) mg/dL Urine Occult Blood (NEGATIVE) Urine Nitrite (NEGATIVE) Urine Bilirubin (NEGATIVE) Urine Urobilinogen (NEGATIVE) mg/dL Ur Leukocyte Esterase (NEGATIVE) Urine RBC (0-5) Urine WBC (0-5) Ur Squamous Epith Cells (NS,R,O) Urine Bacteria (NS) Urine Mucus (NS) SARS-CoV-2 RNA (K[place]TON) (NEGATIVE) Result Diagrams: 10/22/20 06:15 10/22/20 06:15 Jamel Results Last 24 hrs: Microbiology 10/21/20 20:40 Urine Culture - Preliminary Urine, Clean Catch MIXED POSITIVE YOU DAY 1 Sepsis Event Note - Evaluation Sepsis Screening Result: No Definite Risk - Focused Exam Vital Signs: Vital Signs Temp Pulse Resp BP Pulse Ox 10/22/20 16:00 98.3 F 78 18 172/95 H 95 10/22/20 12:00 98.4 F 75 16 153/48 H 95 10/22/20 08:00 97.5 F 74 16 160/83 H 96 *Q Meaningful Use (ADM) - VTE Risk Assess *Q Each Risk Factor Represents 1 Point: None Total Score 1 Point Risk Factors: 0 Each Risk Factor Represents 2 Points: Age 60 - 74 Years Total Score 2 Point Risk Factors: 2 Each Risk Factor Represents 3 Points: None Total Score 3 Point Risk Factors: 0 Each Risk Factor Represents 5 Points: None Total Score 5 Point Risk Factors: 0 Venous Thromboembolism Risk Factor Score *Q: 2 - Problem List (1) Partial small bowel obstruction SNOMED Code(s): 704061719 ICD Code: K56.600 - PARTIAL INTESTINAL OBSTRUCTION, UNSPECIFIED TO CAUSE Status: Acute Current Visit: Yes (2) Abdominal pain SNOMED Code(s): 46229795 ICD Code: R10.9 - UNSPECIFIED ABDOMINAL PAIN Status: Acute Current Visit: Yes (3) UTI (urinary tract infection) SNOMED Code(s): 01346279 ICD Code: N39.0 - URINARY TRACT INFECTION, SITE NOT SPECIFIED Status: Ruled-out Current Visit: Yes Problem Details: UC grew mixed gram positive you, false positive UA. Discontinue Rocephin. (4) A-fib SNOMED Code(s): 71464674 ICD Code: I48.91 - UNSPECIFIED ATRIAL FIBRILLATION Status: Chronic Current Visit: No Qualifiers: Atrial fibrillation type: paroxysmal Qualified Code(s): I48.0 - Paroxysmal atrial fibrillation (5) GERD (gastroesophageal reflux disease) SNOMED Code(s): 998899470 ICD Code: K21.9 - GASTRO-ESOPHAGEAL REFLUX DISEASE WITHOUT ESOPHAGITIS Status: Chronic Current Visit: No (6) S/P hysterectomy with oophorectomy SNOMED Code(s): 859240063 ICD Code: Z90.710 - ACQUIRED ABSENCE OF BOTH CERVIX AND UTERUS; Z90.721 - ACQUIRED ABSENCE OF OVARIES, UNILATERAL Status: Chronic Current Visit: Yes (7) History of Meckel's diverticulum SNOMED Code(s): 238956420 ICD Code: Z87.19 - PERSONAL HISTORY OF OTHER DISEASES OF THE DIGESTIVE SYSTEM Status: Chronic Current Visit: Yes (8) History of bowel resection SNOMED Code(s): 922660647 ICD Code: Z90.49 - ACQUIRED ABSENCE OF OTHER SPECIFIED PARTS OF DIGESTIVE TRACT Status: Chronic Current Visit: Yes (9) History of appendectomy SNOMED Code(s): 676085345 ICD Code: Z90.49 - ACQUIRED ABSENCE OF OTHER SPECIFIED PARTS OF DIGESTIVE TRACT Status: Chronic Current Visit: Yes (10) History of benign ovarian tumor SNOMED Code(s): 611247565 ICD Code: Z86.018 - PERSONAL HISTORY OF OTHER BENIGN NEOPLASM Status: Chronic Current Visit: Yes Problem List Initiated/Reviewed/Updated: Yes Orders Last 24hrs: Active Orders 24 hr Category Date Time Status Patient Status [ADT] Routine ADT 10/21/20 23:39 Active Intake and Output [RC] 06,14,22 Care 10/21/20 23:41 Active Notify Provider Consults [RC] ASDIRECTED Care 10/22/20 08:53 Active Oxygen Therapy [RC] PRN Care 10/21/20 23:39 Active Pulse Oximetry [RC] PRN Care 10/21/20 23:41 Active Up With Assistance [RC] ASDIRECTED Care 10/21/20 23:39 Active Vital Signs [RC] 00,04,08,12,16,20 Care 10/21/20 23:39 Active Consult to Physician [CONS] Routine Cons 10/22/20 08:53 Ordered Nothing per Oral Now Diet [DIET] Diet 10/22/20 Breakfast Ordered Abdomen Pelvis w Cont [CT] Stat Exams 10/21/20 20:32 Taken CULTURE URINE [RM] Stat Lab 10/21/20 20:40 Results Enoxaparin [Lovenox] Med 10/23/20 08:00 Active 40 mg SUBCUT Q24H Ketorolac [Toradol] Med 10/22/20 08:45 Active 30 mg IVPUSH Q6H PRN Morphine Med 10/21/20 23:39 Active 2 mg IVPUSH Q2H PRN Ondansetron [Zofran] Med 10/21/20 23:39 Active 4 mg IV Q4H PRN Sodium Chloride 0.9% [Normal Saline] 1,000 ml Med 10/21/20 23:45 Active IV ASDIRECTED Sodium Chloride 0.9% [Saline Flush] Med 10/21/20 20:32 Active 10 ml FLUSH ASDIRECTED PRN cefTRIAXone [Rocephin] Med 10/22/20 23:00 Active 1 gm IVPUSH Q24H Saline Lock Insert [OM.PC] Routine Oth 10/21/20 20:32 Ordered Resuscitation Status Routine Resus Stat 10/21/20 23:39 Ordered Medication Orders Ceftriaxone Sodium (Ceftriaxone 1 Gm Vial) 1 gm IVPUSH Q24H LUAN Enoxaparin Sodium (Enoxaparin 40 Mg/0.4 Ml Syringe) 40 mg SUBCUT Q24H LUAN Sodium Chloride (Normal Saline) 1,000 mls @ 125 mls/hr IV ASDIRECTED LUAN Last Admin: 10/22/20 14:54 Dose: 125 mls/hr Documented by: Infusion: 10/22/20 14:45 Dose: 125 mls/hr Documented by: Admin: 10/22/20 06:45 Dose: 125 mls/hr Documented by: Infusion: 10/22/20 06:45 Dose: 125 mls/hr Documented by: Admin: 10/21/20 22:45 Dose: 125 mls/hr Documented by: CHARLES Ketorolac Tromethamine (Ketorolac 30 Mg/Ml Sdv) 30 mg IVPUSH Q6H PRN PRN Reason: Pain (moderate 4-6) Stop: 10/27/20 08:45 Last Admin: 10/22/20 16:47 Dose: 30 mg Documented by: Admin: 10/22/20 09:49 Dose: 30 mg Documented by: LUDY Morphine Sulfate (Morphine 2 Mg/Ml Syringe) 2 mg IVPUSH Q2H PRN PRN Reason: Pain (severe 7-10) Last Admin: 10/22/20 13:35 Dose: 2 mg Documented by: Admin: 10/22/20 04:48 Dose: 2 mg Documented by: Admin: 10/22/20 02:47 Dose: 2 mg Documented by: Admin: 10/22/20 00:26 Dose: 2 mg Documented by: DEB Ondansetron HCl (Ondansetron 4 Mg/2 Ml Sdv) 4 mg IV Q4H PRN PRN Reason: Nausea/Vomiting Last Admin: 10/22/20 16:47 Dose: 4 mg Documented by: Admin: 10/22/20 09:50 Dose: 4 mg Documented by: Admin: 10/22/20 02:11 Dose: 4 mg Documented by: DEB Sodium Chloride (Sodium Chloride 0.9% 10 Ml Syringe) 10 ml FLUSH ASDIRECTED PRN PRN Reason: Keep Vein Open Last Admin: 10/21/20 22:00 Dose: 10 ml Documented by: CHARLES Assessment/Plan Comment:: 1. Admit for observation for partial small bowel obstruction. 2. SBO: NPO except ice chips. Ambulate. Consult Dr Mauricio. Toradol 30 mg IV q6h prn, Morphine 2 mg IV q2h prn. Discussed Tylenol suppositories but pt would like to hold off. NS at 125 ml/hr. Place NG if nausea worsens or vomiting. 3. UTI ruled out: UA showed blood, small LE, 5-10 RBC & WBC but moderate epithelials & bacteria, pt admits she forgot to clean with sanitizing wipe prior to collection. UC grew mixed normal you so false positive UA from skin contam ination. Discontinue Rocephin. 4. Diet: NPO except ice chips. Advance as tolerated. 5. Activity: ambulate. 6. DVT prophylaxis: Lovenox 40 mg sq daily. 7. CODE STATUS: FULL. 8. Discharge plannin-48 hours of bowel rest, advance diet as tolerated. - Mortality Measure Prognosis:: Good
[2020-10-22] MEDS ORDERED: Morphine 2 MG/ML SYRINGE IVPUSH ONE (19:22)
[2020-10-22] MEDS ORDERED: cefTRIAXone 1 GM Vial IVPUSH SCH (23:00)
--- NOTE | 2020-10-23 00:18 | CONS ---
DATE OF CONSULTATION: 10/22/2020 PHYSICIAN REQUESTING CONSULT: Krista Pan MD. HISTORY: This 70-year-old female developed upper abdominal pain 2 days ago. This persisted while at home and caused her presentation to the emergency room last night. At that time, she was evaluated. She did get some relief with pain medication. Laboratory studies were performed and were unremarkable. CT scan of the abdomen was performed and this showed findings consistent with a mid small bowel partial small bowel obstruction. The patient was admitted. Since admission, she says she does continue to have mid upper abdominal pain. It has decreased slightly since admission, but does persist. She also notes that she did have a bowel movement yesterday morning, but has not had any stool or flatus since that time. The patient does recall approximately 5 episodes over the last year, which have been somewhat similar to this. All of these have resolved while at home. This is the first time that she has required hospitalization. PAST MEDICAL HISTORY: Her past medical history does include a history of prior surgeries. These include a hysterectomy with removal of appendix and Meckel's diverticulum. Subsequent to that, she did have removal of an ovary and also repair of a hernia. She also has had a previous colonoscopy about 2 years ago, which noted polyps. The patient is otherwise generally healthy. MEDICATIONS: She does not take any routine prescription medications. ALLERGIES: She has no known drug allergies. FAMILY HISTORY: Noncontributory. SOCIAL HISTORY: The patient is . 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 REVIEW OF SYSTEMS: She has not been experiencing any recent cough, cold, or sore throat symptoms. No chest pain or palpitations. She has noted some constipation, but otherwise, bowel function has been satisfactory. PHYSICAL EXAMINATION: VITAL SIGNS: Temperature 98.4, pulse 75, blood pressure is 153/48, weight is 157 pounds. GENERAL: The patient is an alert, adult female. She is currently in no acute distress. HEENT: Head is normocephalic. No scleral icterus. No cervical masses. HEART: Regular without murmur. LUNGS: Clear. ABDOMEN: Shows minimal distention diffusely. There is mild direct tenderness to palpation. No guarding is noted. I do not feel any abdominal masses or hepatic or splenic enlargement. EXTREMITIES: No obvious deformity. IMPRESSION: Partial small bowel obstruction, likely secondary to adhesions. RECOMMENDATIONS: We will observe at this time. Encourage the patient to ambulate. Did discuss possibility of NG tube decompression to help with some of her abdominal discomfort, but she declines this at this time. We will follow the patient's clinical course, which will determine further workup and treatment. /[id number] TILA/SAI
[2020-10-23] MEDS: Ketorolac 30 MG/ML SDV IVPUSH PRN ×2 (05:15→17:35)
[2020-10-23] MEDS: Sodium Chloride 0.9% 1,000 ML IV SCH ×2 (07:03→17:35)
[2020-10-23] MEDS ORDERED: Acetaminophen 650 MG Supp RECTAL PRN (08:14)
[2020-10-23] MEDS: Morphine 4 MG/ML VIAL IVPUSH PRN ×2 (10:09→20:25)
[2020-10-23] MEDS: Ondansetron 4 MG/2 ML SDV IV PRN ×2 (10:10→17:35)
[2020-10-23] MEDS: Enoxaparin 40 MG/0.4 ML Syringe SUBCUT SCH (10:11)
--- NOTE | 2020-10-23 13:38 | PCM.PN ---
- General Info Date of Service: 10/23/20 Subjective Update: Oksana has passed gas but no bowel movement yet. Still diffuse abdominal pain, no nausea or vomiting. Blood pressures are high, states she has been tried on Lisinopril 2.5 and HCTZ 12.5 mg but had cough with Lisinopril and HCTZ dropped her pressures below 100. She states pain is not controlled with current meds. Dr Mauricio saw early this am, still wants NPO with ice chips, not to advance diet. She declined NG. - Patient Data Vitals - Most Recent: Last Vital Signs Temp 98.9 F 10/23/20 08:00 Pulse 71 10/23/20 08:00 Resp 18 10/23/20 08:00 BP 164/81 H 10/23/20 08:00 Pulse Ox 95 10/23/20 08:00 Weight - Most Recent: 157 lb 14.4 oz I&O - Last 24 Hours: Intake & Output 10/22/20 10/23/20 10/23/20 22:59 06:59 14:59 Intake Total 1049 978 Output Total 375 Balance 674 978 Jamel Results Last 24 Hours: Microbiology 10/21/20 20:40 Urine Culture - Preliminary Urine, Clean Catch MIXED POSITIVE YOU DAY 1 Med Orders - Current: Current Medications Acetaminophen (Acetaminophen 650 Mg Supp) 650 mg RECTAL Q4H PRN PRN Reason: Pain (moderate 4-6) Enoxaparin Sodium (Enoxaparin 40 Mg/0.4 Ml Syringe) 40 mg SUBCUT Q24H [facility] Last Admin: 10/23/20 10:11 Dose: 40 mg Documented by: Sodium Chloride (Normal Saline) 1,000 mls @ 75 mls/hr IV ASDIRECTED [facility] Last Infusion: 10/23/20 10:00 Dose: 75 mls/hr Documented by: Ketorolac Tromethamine (Ketorolac 30 Mg/Ml Sdv) 30 mg IVPUSH Q6H PRN PRN Reason: Pain (moderate 4-6) Stop: 10/27/20 08:45 Last Admin: 10/23/20 05:15 Dose: 30 mg Documented by: Morphine Sulfate (Morphine 4 Mg/Ml Vial) 4 mg IVPUSH Q2H PRN PRN Reason: Pain (severe 7-10) Last Admin: 10/23/20 10:09 Dose: 4 mg Documented by: Ondansetron HCl (Ondansetron 4 Mg/2 Ml Sdv) 4 mg IV Q4H PRN PRN Reason: Nausea/Vomiting Last Admin: 10/23/20 10:10 Dose: 4 mg Documented by: Sodium Chloride (Sodium Chloride 0.9% 10 Ml Syringe) 10 ml FLUSH ASDIRECTED PRN PRN Reason: Keep Vein Open Last Admin: 10/21/20 22:00 Dose: 10 ml Documented by: Discontinued Medications Ceftriaxone Sodium (Ceftriaxone 1 Gm Vial) Confirm Administered Dose 1 gm .ROUTE .STK-MED ONE Stop: 10/21/20 22:47 Last Admin: 10/21/20 23:45 Dose: 1 gm Documented by: Ceftriaxone Sodium (Ceftriaxone 1 Gm Vial) 1 gm IVPUSH Q24H [facility] Ceftriaxone Sodium (Ceftriaxone 2 Gm Vial) 1 gm IVPUSH ONETIME ONE Stop: 10/21/20 22:47 Last Admin: 10/22/20 19:29 Dose: 1 gm Documented by: Al Hydroxide/Mg Hydroxide 15 (ml/ Lidocaine HCl 15 ml) 0 ml PO ONETIME ONE Stop: 10/21/20 20:41 Last Admin: 10/21/20 20:56 Dose: 30 ml Documented by: Enoxaparin Sodium (Enoxaparin 40 Mg/0.4 Ml Syringe) 40 mg SUBCUT Q24H [facility] Last Admin: 10/22/20 00:26 Dose: 40 mg Documented by: Sodium Chloride (Normal Saline) 1,000 mls @ 999 mls/hr IV ASDIRECTED [facility] Last Admin: 10/21/20 21:00 Dose: 999 mls/hr Documented by: Ceftriaxone Sodium 1 gm/ (Sodium Chloride) 50 mls @ 200 mls/hr IV Q24H [facility] Stop: 10/21/20 23:59 Last Admin: 10/22/20 07:32 Dose: Not Given Documented by: Iopamidol (Iopamidol 755 Mg/Ml 75 Ml Bottle) 75 ml IV ONETIME ONE Stop: 10/21/20 21:12 Last Admin: 10/21/20 21:19 Dose: 75 ml Documented by: Ketorolac Tromethamine (Ketorolac 30 Mg/Ml Sdv) 30 mg IVPUSH NOW STA Stop: 10/21/20 20:39 Last Admin: 10/21/20 21:24 Dose: 30 mg Documented by: Labetalol HCl (Labetalol 20 Mg/4 Ml Syringe) 20 mg IVPUSH NOW STA; Protocol Stop: 10/21/20 21:51 Last Admin: 10/21/20 21:55 Dose: 20 mg Documented by: Morphine Sulfate (Morphine 2 Mg/Ml Syringe) 2 mg IVPUSH NOW STA Stop: 10/21/20 20:39 Last Admin: 10/21/20 21:30 Dose: 2 mg Documented by: Morphine Sulfate (Morphine 2 Mg/Ml Syringe) Confirm Administered Dose 2 mg .ROUTE .STK-MED ONE Stop: 10/21/20 22:47 Last Admin: 10/21/20 22:44 Dose: 2 mg Documented by: Morphine Sulfate (Morphine 2 Mg/Ml Syringe) 2 mg IVPUSH Q2H PRN PRN Reason: Pain (severe 7-10) Last Admin: 10/22/20 20:28 Dose: 2 mg Documented by: Morphine Sulfate (Morphine 2 Mg/Ml Syringe) 2 mg IVPUSH ONETIME ONE Stop: 10/22/20 19:23 Last Admin: 10/21/20 22:46 Dose: 2 mg Documented by: Ondansetron HCl (Ondansetron 4 Mg/2 Ml Sdv) 4 mg IVPUSH NOW STA Stop: 10/21/20 20:39 Last Admin: 10/21/20 21:11 Dose: 4 mg Documented by: - Exam General: Alert, Oriented, Cooperative, No Acute Distress Lungs: Clear to Auscultation, Normal Respiratory Effort Cardiovascular: Regular Rate, Regular Rhythm GI/Abdominal Exam: Soft, No Distention, Guarding, Tender (diffuse), Abnormal Bowel Sounds (high-pitched BS x 3, hypoactive x 1(LLQ)). No: Rebound - Patient Data Result Diagrams: 10/22/20 06:15 10/22/20 06:15 Jamel Results Last 24 hrs: Microbiology 10/21/20 20:40 Urine Culture - Preliminary Urine, Clean Catch MIXED POSITIVE YOU DAY 1 Sepsis Event Note - Evaluation Sepsis Screening Result: No Definite Risk - Focused Exam Vital Signs: Vital Signs Temp Pulse Resp BP Pulse Ox 10/23/20 08:00 98.9 F 71 18 164/81 H 95 10/23/20 04:45 98.5 F 78 18 184/96 H 95 - Problem List & Annotations (1) Partial small bowel obstruction SNOMED Code(s): 893037773 Code(s): K56.600 - PARTIAL INTESTINAL OBSTRUCTION, UNSPECIFIED TO CAUSE Status: Acute Current Visit: Yes (2) Abdominal pain SNOMED Code(s): 29383211 Code(s): R10.9 - UNSPECIFIED ABDOMINAL PAIN Status: Acute Current Visit: Yes (3) UTI (urinary tract infection) SNOMED Code(s): 84067396 Code(s): N39.0 - URINARY TRACT INFECTION, SITE NOT SPECIFIED Status: Ruled-out Current Visit: Yes Annotation/Comment:: UC grew mixed gram positive you, false positive UA. Discontinue Rocephin. (4) A-fib SNOMED Code(s): 17346376 Code(s): I48.91 - UNSPECIFIED ATRIAL FIBRILLATION Status: Chronic Current Visit: No Qualifiers: Atrial fibrillation type: paroxysmal Qualified Code(s): I48.0 - Paroxysmal atrial fibrillation (5) GERD (gastroesophageal reflux disease) SNOMED Code(s): 372798802 Code(s): K21.9 - GASTRO-ESOPHAGEAL REFLUX DISEASE WITHOUT ESOPHAGITIS Status: Chronic Current Visit: No (6) S/P hysterectomy with oophorectomy SNOMED Code(s): 163769257 Code(s): Z90.710 - ACQUIRED ABSENCE OF BOTH CERVIX AND UTERUS; Z90.721 - ACQUIRED ABSENCE OF OVARIES, UNILATERAL Status: Chronic Current Visit: Yes (7) History of Meckel's diverticulum SNOMED Code(s): 823544024 Code(s): Z87.19 - PERSONAL HISTORY OF OTHER DISEASES OF THE DIGESTIVE SYSTEM Status: Chronic Current Visit: Yes (8) History of bowel resection SNOMED Code(s): 795006965 Code(s): Z90.49 - ACQUIRED ABSENCE OF OTHER SPECIFIED PARTS OF DIGESTIVE TRACT Status: Chronic Current Visit: Yes (9) History of appendectomy SNOMED Code(s): 901810766 Code(s): Z90.49 - ACQUIRED ABSENCE OF OTHER SPECIFIED PARTS OF DIGESTIVE TRACT Status: Chronic Current Visit: Yes (10) History of benign ovarian tumor SNOMED Code(s): 202042860 Code(s): Z86.018 - PERSONAL HISTORY OF OTHER BENIGN NEOPLASM Status: Chronic Current Visit: Yes - Problem List Review Problem List Initiated/Reviewed/Updated: Yes - My Orders Last 24 Hours: My Active Orders 10/22/20 18:35 Activity as Tolerated [RC] .Routine Ambulate [RC] ASDIRECTED 10/23/20 08:00 Enoxaparin [Lovenox] 40 mg SUBCUT Q24H 10/23/20 08:14 Acetaminophen [Tylenol] 650 mg RECTAL Q4H PRN 10/23/20 08:29 Morphine 4 mg IVPUSH Q2H PRN 10/23/20 10:07 Patient Status [ADT] Routine - Plan Plan:: 1. SBO: NPO except ice chips. Ambulate. Consult Dr Mauricio. Toradol 30 mg IV q6h prn, increase Morphine 4 mg IV q2h prn. Tylenol suppositories as needed. Decrease NS to 75 ml/hr. 2. Diet: NPO except ice chips. 3. Discharge plannin-48 hours of bowel rest, diet per Dr Mauricio, she will be 48 hrs observation at midnight, would not go home today so changed to inpatient status.
[2020-10-23] MEDS: Sodium Chloride 0.9% 10 ML Syringe FLUSH PRN (17:35)
--- NOTE | 2020-10-23 18:29 | PCM.PN ---
- General Info Date of Service: 10/23/20 Admission Dx/Problem (Free Text): Small bowel obstruction Subjective Update: Patient may have passed small amount of flatus today but no BM Functional Status: Reports: Other (still will generalized abdominal pain with little change) - Review of Systems Pulmonary: Reports: No Symptoms Gastrointestinal: Reports: Flatus (minimal), Nausea (Mild occasional). Denies: Vomiting Genitourinary: Reports: No Symptoms - Patient Data Vitals - Most Recent: Last Vital Signs Temp 98.2 F 10/23/20 12:00 Pulse 72 10/23/20 12:00 Resp 16 10/23/20 12:00 BP 155/78 H 10/23/20 12:00 Pulse Ox 95 10/23/20 12:00 Weight - Most Recent: 157 lb 14.4 oz I&O - Last 24 Hours: Intake & Output 10/23/20 10/23/20 10/23/20 06:59 14:59 22:59 Intake Total 978 575 Balance 978 575 Jamel Results Last 24 Hours: Microbiology 10/21/20 20:40 Urine Culture - Final Urine, Clean Catch MIXED POSITIVE [facility] DAY 2 Med Orders - Current: Current Medications Acetaminophen (Acetaminophen 650 Mg Supp) 650 mg RECTAL Q4H PRN PRN Reason: Pain (moderate 4-6) Enoxaparin Sodium (Enoxaparin 40 Mg/0.4 Ml Syringe) [address] [facility] Last Admin: 10/23/20 10:11 Dose: 40 mg Documented by: Sodium Chloride (Normal Saline) 1,000 mls @ 75 mls/hr IV ASDIRECTED [facility] Last Admin: 10/23/20 17:35 Dose: 75 mls/hr Documented by: Ketorolac Tromethamine (Ketorolac 30 Mg/Ml Sdv) 30 mg IVPUSH Q6H PRN PRN Reason: Pain (moderate 4-6) Stop: 10/27/20 08:45 Last Admin: 10/23/20 17:35 Dose: 30 mg Documented by: Morphine Sulfate (Morphine 4 Mg/Ml Vial) 4 mg IVPUSH Q2H PRN PRN Reason: Pain (severe 7-10) Last Admin: 10/23/20 10:09 Dose: 4 mg Documented by: Ondansetron HCl (Ondansetron 4 Mg/2 Ml Sdv) 4 mg IV Q4H PRN PRN Reason: Nausea/Vomiting Last Admin: 10/23/20 17:35 Dose: 4 mg Documented by: Sodium Chloride (Sodium Chloride 0.9% 10 Ml Syringe) 10 ml FLUSH ASDIRECTED PRN PRN Reason: Keep Vein Open Last Admin: 10/23/20 17:35 Dose: 10 ml Documented by: Discontinued Medications Ceftriaxone Sodium (Ceftriaxone 1 Gm Vial) Confirm Administered Dose 1 gm .ROUTE .STK-MED ONE Stop: 10/21/20 22:47 Last Admin: 10/21/20 23:45 Dose: 1 gm Documented by: Ceftriaxone Sodium (Ceftriaxone 1 Gm Vial) [address] [facility] Ceftriaxone Sodium (Ceftriaxone 2 Gm Vial) 1 gm IVPUSH ONETIME ONE Stop: 10/21/20 22:47 Last Admin: 10/22/20 19:29 Dose: 1 gm Documented by: Al Hydroxide/Mg Hydroxide 15 (ml/ Lidocaine HCl 15 ml) 0 ml PO ONETIME ONE Stop: 10/21/20 20:41 Last Admin: 10/21/20 20:56 Dose: 30 ml Documented by: Enoxaparin Sodium (Enoxaparin 40 Mg/0.4 Ml Syringe) [address] [facility] Last Admin: 10/22/20 00:26 Dose: 40 mg Documented by: Sodium Chloride (Normal Saline) 1,000 mls @ 999 mls/hr IV ASDIRECTED [facility] Last Admin: 10/21/20 21:00 Dose: 999 mls/hr Documented by: Ceftriaxone Sodium 1 gm/ (Sodium Chloride) 50 mls @ 200 mls/hr IV Q24H [facility] Stop: 10/21/20 23:59 Last Admin: 10/22/20 07:32 Dose: Not Given Documented by: Iopamidol (Iopamidol 755 Mg/Ml 75 Ml Bottle) 75 ml IV ONETIME ONE Stop: 10/21/20 21:12 Last Admin: 10/21/20 21:19 Dose: 75 ml Documented by: Ketorolac Tromethamine (Ketorolac 30 Mg/Ml Sdv) 30 mg IVPUSH NOW STA Stop: 10/21/20 20:39 Last Admin: 10/21/20 21:24 Dose: 30 mg Documented by: Labetalol HCl (Labetalol 20 Mg/4 Ml Syringe) 20 mg IVPUSH NOW STA; Protocol Stop: 10/21/20 21:51 Last Admin: 10/21/20 21:55 Dose: 20 mg Documented by: Morphine Sulfate (Morphine 2 Mg/Ml Syringe) 2 mg IVPUSH NOW STA Stop: 10/21/20 20:39 Last Admin: 10/21/20 21:30 Dose: 2 mg Documented by: Morphine Sulfate (Morphine 2 Mg/Ml Syringe) Confirm Administered Dose 2 mg .ROUTE .STK-MED ONE Stop: 10/21/20 22:47 Last Admin: 10/21/20 22:44 Dose: 2 mg Documented by: Morphine Sulfate (Morphine 2 Mg/Ml Syringe) 2 mg IVPUSH Q2H PRN PRN Reason: Pain (severe 7-10) Last Admin: 10/22/20 20:28 Dose: 2 mg Documented by: Morphine Sulfate (Morphine 2 Mg/Ml Syringe) 2 mg IVPUSH ONETIME ONE Stop: 10/22/20 19:23 Last Admin: 10/21/20 22:46 Dose: 2 mg Documented by: Ondansetron HCl (Ondansetron 4 Mg/2 Ml Sdv) 4 mg IVPUSH NOW STA Stop: 10/21/20 20:39 Last Admin: 10/21/20 21:11 Dose: 4 mg Documented by: - Exam General: Alert, Oriented GI/Abdominal Exam: Distended (moderate), Tender (moderate diffusely). No: Guarding, Mass - Patient Data Result Diagrams: 10/22/20 06:15 10/22/20 06:15 Jamel Results Last 24 hrs: Microbiology 10/21/20 20:40 Urine Culture - Final Urine, Clean Catch MIXED POSITIVE [facility] DAY 2 Sepsis Event Note - Evaluation Sepsis Screening Result: No Definite Risk - Focused Exam Vital Signs: Vital Signs Temp Pulse Resp BP Pulse Ox 10/23/20 12:00 98.2 F 72 16 155/78 H 95 10/23/20 08:00 98.9 F 71 18 164/81 H 95 - Problem List Review Problem List Initiated/Reviewed/Updated: Yes - My Orders Last 24 Hours: My Active Orders 10/23/20 18:21 Nasogastric Orogastric Tube Insertion [OM.PC] Routine - Assessment Assessment:: SBO with minimal improvement with bowel rest - Plan Plan:: Place NG Continue IV If does not improve will likely need laparotomy
[2020-10-24] MEDS: Ketorolac 30 MG/ML SDV IVPUSH PRN ×4 (00:06→23:43)
[2020-10-24] MEDS: Sodium Chloride 0.9% 1,000 ML IV SCH ×2 (05:30→18:55)
--- NOTE | 2020-10-24 08:31 | PCM.PN ---
- General Info Date of Service: 10/24/20 Admission Dx/Problem (Free Text): Small bowel obstruction Subjective Update: Patient passed more flatus this AM and subjectively states she feels better this AM - Review of Systems Pulmonary: Reports: No Symptoms Gastrointestinal: Reports: Abdominal Pain (still present in lower and upper abdomen but improved ), Flatus (definite flatus this am), Other (NG has only putout about 500 cc since insertion) Genitourinary: Denies: Dysuria Musculoskeletal: Denies: Leg Pain - Patient Data Vitals - Most Recent: Last Vital Signs Temp 98.3 F 10/24/20 04:00 Pulse 77 10/24/20 04:00 Resp 18 10/24/20 04:00 BP 148/91 H 10/24/20 00:00 Pulse Ox 95 10/24/20 04:00 Weight - Most Recent: 157 lb 14.4 oz I&O - Last 24 Hours: Intake & Output 10/23/20 10/24/20 10/24/20 22:59 06:59 14:59 Intake Total 50 574 Output Total 700 Balance 50 -126 Jamel Results Last 24 Hours: Microbiology 10/21/20 20:40 Urine Culture - Final Urine, Clean Catch MIXED POSITIVE [facility] DAY 2 Med Orders - Current: Current Medications Acetaminophen (Acetaminophen 650 Mg Supp) 650 mg RECTAL Q4H PRN PRN Reason: Pain (moderate 4-6) Enoxaparin Sodium (Enoxaparin 40 Mg/0.4 Ml Syringe) 40 mg SUBCUT Q24H [facility] Last Admin: 10/23/20 10:11 Dose: 40 mg Documented by: Sodium Chloride (Normal Saline) 1,000 mls @ 75 mls/hr IV ASDIRECTED [facility] Last Admin: 10/24/20 05:30 Dose: 75 mls/hr Documented by: Ketorolac Tromethamine (Ketorolac 30 Mg/Ml Sdv) 30 mg IVPUSH Q6H PRN PRN Reason: Pain (moderate 4-6) Stop: 10/27/20 08:45 Last Admin: 10/24/20 00:06 Dose: 30 mg Documented by: Morphine Sulfate (Morphine 4 Mg/Ml Vial) 4 mg IVPUSH Q2H PRN PRN Reason: Pain (severe 7-10) Last Admin: 10/23/20 20:25 Dose: 4 mg Documented by: Ondansetron HCl (Ondansetron 4 Mg/2 Ml Sdv) 4 mg IV Q4H PRN PRN Reason: Nausea/Vomiting Last Admin: 10/23/20 17:35 Dose: 4 mg Documented by: Sodium Chloride (Sodium Chloride 0.9% 10 Ml Syringe) 10 ml FLUSH ASDIRECTED PRN PRN Reason: Keep Vein Open Last Admin: 10/23/20 17:35 Dose: 10 ml Documented by: Discontinued Medications Ceftriaxone Sodium (Ceftriaxone 1 Gm Vial) Confirm Administered Dose 1 gm .ROUTE .STK-MED ONE Stop: 10/21/20 22:47 Last Admin: 10/21/20 23:45 Dose: 1 gm Documented by: Ceftriaxone Sodium (Ceftriaxone 1 Gm Vial) 1 gm IVPUSH Q24H [facility] Ceftriaxone Sodium (Ceftriaxone 2 Gm Vial) 1 gm IVPUSH ONETIME ONE Stop: 10/21/20 22:47 Last Admin: 10/22/20 19:29 Dose: 1 gm Documented by: Al Hydroxide/Mg Hydroxide 15 (ml/ Lidocaine HCl 15 ml) 0 ml PO ONETIME ONE Stop: 10/21/20 20:41 Last Admin: 10/21/20 20:56 Dose: 30 ml Documented by: Enoxaparin Sodium (Enoxaparin 40 Mg/0.4 Ml Syringe) 40 mg SUBCUT Q24H [facility] Last Admin: 10/22/20 00:26 Dose: 40 mg Documented by: Sodium Chloride (Normal Saline) 1,000 mls @ 999 mls/hr IV ASDIRECTED [facility] Last Admin: 10/21/20 21:00 Dose: 999 mls/hr Documented by: Ceftriaxone Sodium 1 gm/ (Sodium Chloride) 50 mls @ 200 mls/hr IV Q24H [facility] Stop: 10/21/20 23:59 Last Admin: 10/22/20 07:32 Dose: Not Given Documented by: Iopamidol (Iopamidol 755 Mg/Ml 75 Ml Bottle) 75 ml IV ONETIME ONE Stop: 10/21/20 21:12 Last Admin: 10/21/20 21:19 Dose: 75 ml Documented by: Ketorolac Tromethamine (Ketorolac 30 Mg/Ml Sdv) 30 mg IVPUSH NOW STA Stop: 10/21/20 20:39 Last Admin: 10/21/20 21:24 Dose: 30 mg Documented by: Labetalol HCl (Labetalol 20 Mg/4 Ml Syringe) 20 mg IVPUSH NOW STA; Protocol Stop: 10/21/20 21:51 Last Admin: 10/21/20 21:55 Dose: 20 mg Documented by: Morphine Sulfate (Morphine 2 Mg/Ml Syringe) 2 mg IVPUSH NOW STA Stop: 10/21/20 20:39 Last Admin: 10/21/20 21:30 Dose: 2 mg Documented by: Morphine Sulfate (Morphine 2 Mg/Ml Syringe) Confirm Administered Dose 2 mg .ROUTE .STK-MED ONE Stop: 10/21/20 22:47 Last Admin: 10/21/20 22:44 Dose: 2 mg Documented by: Morphine Sulfate (Morphine 2 Mg/Ml Syringe) 2 mg IVPUSH Q2H PRN PRN Reason: Pain (severe 7-10) Last Admin: 10/22/20 20:28 Dose: 2 mg Documented by: Morphine Sulfate (Morphine 2 Mg/Ml Syringe) 2 mg IVPUSH ONETIME ONE Stop: 10/22/20 19:23 Last Admin: 10/21/20 22:46 Dose: 2 mg Documented by: Ondansetron HCl (Ondansetron 4 Mg/2 Ml Sdv) 4 mg IVPUSH NOW STA Stop: 10/21/20 20:39 Last Admin: 10/21/20 21:11 Dose: 4 mg Documented by: - Exam General: Alert, Oriented Lungs: Normal Respiratory Effort GI/Abdominal Exam: Soft, Distended (but less so then last night), Tender (Moderate but improved tenderness in lower and upper abdomen) Extremities: Non-Tender - Patient Data Result Diagrams: 10/22/20 06:15 10/22/20 06:15 Jamel Results Last 24 hrs: Microbiology 10/21/20 20:40 Urine Culture - Final Urine, Clean Catch MIXED POSITIVE [facility] DAY 2 Sepsis Event Note - Evaluation Sepsis Screening Result: No Definite Risk - Focused Exam Vital Signs: Vital Signs Temp Pulse Resp BP Pulse Ox 10/24/20 04:00 98.3 F 77 18 95 10/24/20 00:00 98 F 82 16 148/91 H 95 - Problem List Review Problem List Initiated/Reviewed/Updated: Yes - My Orders Last 24 Hours: My Active Orders 10/23/20 18:21 Nasogastric Orogastric Tube Insertion [OM.PC] Routine - Assessment Assessment:: SBO with some improvement now beginning to pass flatus - Plan Plan:: NG in place - will continue to observe in light of apparent improvement Continue IV If does not improve will possibly need laparotomy
[2020-10-24] MEDS: Enoxaparin 40 MG/0.4 ML Syringe SUBCUT SCH (08:38)
--- NOTE | 2020-10-24 14:22 | PCM.PN ---
- General Info Date of Service: 10/24/20 Subjective Update: She's had some improvement since NG placed, had approx 200 ml out since 6 am til 10 am, 400 ml out overnight. Her pain is better and passing some gas. - Patient Data Vitals - Most Recent: Last Vital Signs Temp 99.3 F 10/24/20 12:30 Pulse 81 10/24/20 12:30 Resp 20 10/24/20 12:30 BP 160/91 H 10/24/20 12:30 Pulse Ox 94 L 10/24/20 12:30 Weight - Most Recent: 157 lb 14.4 oz I&O - Last 24 Hours: Intake & Output 10/23/20 10/24/20 10/24/20 22:59 06:59 14:59 Intake Total 50 574 530 Output Total 700 660 Balance 50 -126 -130 Lab Results Last 24 Hours: Laboratory Results - last 24 hr 10/24/20 10/24/20 Range/Units 08:45 08:45 WBC 6.3 (3.0-10.3) x10-3/uL RBC 3.98 (3.60-5.20) x10(6)uL Hgb 12.3 (11.4-15.5) g/dL Hct 37.4 (34.2-48.2) % MCV 93.9 (76.7-100.5) fL MCH 30.8 (23.9-33.9) pg MCHC 32.8 (31.9-34.8) g/dL RDW 13.1 (12.3-16.5) % Plt Count 237 (151-488) x10(3)uL MPV 7.0 L (7.1-12.4) fL Neut % (Auto) 75.5 (30.8-76.2) % Lymph % (Auto) 15.5 L (18.4-52.1) % [place] % (Auto) 6.2 (4.4-15.7) % Eos % (Auto) 2.4 (0.6-8.1) % Baso % (Auto) 0.4 (0.2-1.5) % Neut # (Auto) 4.7 (1.5-6.3) x10-3/uL Lymph # (Auto) 1.0 (1.0-4.4) x10-3/uL [place] # (Auto) 0.4 (0.3-1.0) x10-3/uL Eos # (Auto) 0.2 (0.0-0.8) x10-3/uL Baso # (Auto) 0.0 (0.0-0.1) x10-3/uL Sodium 143 (135-145) mmol/L Potassium 3.6 (3.5-5.3) mmol/L Chloride 108 (100-110) mmol/L Carbon Dioxide 24 (21-32) mmol/L BUN 12 (7-18) mg/dL Creatinine 0.7 (0.55-1.02) mg/dL Est Cr Clr Drug Dosing 65.37 mL/min Estimated GFR (MDRD) > 60 (>60) BUN/Creatinine Ratio 17.1 (9-20) Glucose 86 (80-116) mg/dL Calcium 8.3 L (8.6-10.2) mg/dL Jamel Results Last 24 Hours: Microbiology 10/21/20 20:40 Urine Culture - Final Urine, Clean Catch MIXED POSITIVE KARINA DAY 2 Med Orders - Current: Current Medications Acetaminophen (Acetaminophen 650 Mg Supp) 650 mg RECTAL Q4H PRN PRN Reason: Pain (moderate 4-6) Enoxaparin Sodium (Enoxaparin 40 Mg/0.4 Ml Syringe) 40 mg SUBCUT Q24H [facility] Last Admin: 10/24/20 08:38 Dose: 40 mg Documented by: Sodium Chloride (Normal Saline) 1,000 mls @ 75 mls/hr IV ASDIRECTED [facility] Last Admin: 10/24/20 05:30 Dose: 75 mls/hr Documented by: Ketorolac Tromethamine (Ketorolac 30 Mg/Ml Sdv) 30 mg IVPUSH Q6H PRN PRN Reason: Pain (moderate 4-6) Stop: 10/27/20 08:45 Last Admin: 10/24/20 09:28 Dose: 30 mg Documented by: Morphine Sulfate (Morphine 4 Mg/Ml Vial) 4 mg IVPUSH Q2H PRN PRN Reason: Pain (severe 7-10) Last Admin: 10/23/20 20:25 Dose: 4 mg Documented by: Ondansetron HCl (Ondansetron 4 Mg/2 Ml Sdv) 4 mg IV Q4H PRN PRN Reason: Nausea/Vomiting Last Admin: 10/23/20 17:35 Dose: 4 mg Documented by: Sodium Chloride (Sodium Chloride 0.9% 10 Ml Syringe) 10 ml FLUSH ASDIRECTED PRN PRN Reason: Keep Vein Open Last Admin: 10/23/20 17:35 Dose: 10 ml Documented by: Discontinued Medications Ceftriaxone Sodium (Ceftriaxone 1 Gm Vial) Confirm Administered Dose 1 gm .ROUTE .STK-MED ONE Stop: 10/21/20 22:47 Last Admin: 10/21/20 23:45 Dose: 1 gm Documented by: Ceftriaxone Sodium (Ceftriaxone 1 Gm Vial) 1 gm IVPUSH Q24H [facility] Ceftriaxone Sodium (Ceftriaxone 2 Gm Vial) 1 gm IVPUSH ONETIME ONE Stop: 10/21/20 22:47 Last Admin: 10/22/20 19:29 Dose: 1 gm Documented by: Al Hydroxide/Mg Hydroxide 15 (ml/ Lidocaine HCl 15 ml) 0 ml PO ONETIME ONE Stop: 10/21/20 20:41 Last Admin: 10/21/20 20:56 Dose: 30 ml Documented by: Enoxaparin Sodium (Enoxaparin 40 Mg/0.4 Ml Syringe) 40 mg SUBCUT Q24H [facility] Last Admin: 10/22/20 00:26 Dose: 40 mg Documented by: Sodium Chloride (Normal Saline) 1,000 mls @ 999 mls/hr IV ASDIRECTED [facility] Last Admin: 10/21/20 21:00 Dose: 999 mls/hr Documented by: Ceftriaxone Sodium 1 gm/ (Sodium Chloride) 50 mls @ 200 mls/hr IV Q24H [facility] Stop: 10/21/20 23:59 Last Admin: 10/22/20 07:32 Dose: Not Given Documented by: Iopamidol (Iopamidol 755 Mg/Ml 75 Ml Bottle) 75 ml IV ONETIME ONE Stop: 10/21/20 21:12 Last Admin: 10/21/20 21:19 Dose: 75 ml Documented by: Ketorolac Tromethamine (Ketorolac 30 Mg/Ml Sdv) 30 mg IVPUSH NOW STA Stop: 10/21/20 20:39 Last Admin: 10/21/20 21:24 Dose: 30 mg Documented by: Labetalol HCl (Labetalol 20 Mg/4 Ml Syringe) 20 mg IVPUSH NOW STA; Protocol Stop: 10/21/20 21:51 Last Admin: 10/21/20 21:55 Dose: 20 mg Documented by: Morphine Sulfate (Morphine 2 Mg/Ml Syringe) 2 mg IVPUSH NOW STA Stop: 10/21/20 20:39 Last Admin: 10/21/20 21:30 Dose: 2 mg Documented by: Morphine Sulfate (Morphine 2 Mg/Ml Syringe) Confirm Administered Dose 2 mg .ROUTE .STK-MED ONE Stop: 10/21/20 22:47 Last Admin: 10/21/20 22:44 Dose: 2 mg Documented by: Morphine Sulfate (Morphine 2 Mg/Ml Syringe) 2 mg IVPUSH Q2H PRN PRN Reason: Pain (severe 7-10) Last Admin: 10/22/20 20:28 Dose: 2 mg Documented by: Morphine Sulfate (Morphine 2 Mg/Ml Syringe) 2 mg IVPUSH ONETIME ONE Stop: 10/22/20 19:23 Last Admin: 10/21/20 22:46 Dose: 2 mg Documented by: Ondansetron HCl (Ondansetron 4 Mg/2 Ml Sdv) 4 mg IVPUSH NOW STA Stop: 10/21/20 20:39 Last Admin: 10/21/20 21:11 Dose: 4 mg Documented by: - Exam General: Alert, Oriented, Cooperative, No Acute Distress Lungs: Clear to Auscultation, Normal Respiratory Effort Cardiovascular: Regular Rate, Regular Rhythm GI/Abdominal Exam: Soft, Distended (improved), Guarding, Tender (improved), Abnormal Bowel Sounds (hypoactive LLQ, high pitched BUQ, RLQ). No: Rebound - Patient Data Lab Results Last 24 hrs: Laboratory Results - last 24 hr 10/24/20 10/24/20 Range/Units 08:45 08:45 WBC 6.3 (3.0-10.3) x10-3/uL RBC 3.98 (3.60-5.20) x10(6)uL Hgb 12.3 (11.4-15.5) g/dL Hct 37.4 (34.2-48.2) % MCV 93.9 (76.7-100.5) fL MCH 30.8 (23.9-33.9) pg MCHC 32.8 (31.9-34.8) g/dL RDW 13.1 (12.3-16.5) % Plt Count 237 (151-488) x10(3)uL MPV 7.0 L (7.1-12.4) fL Neut % (Auto) 75.5 (30.8-76.2) % Lymph % (Auto) 15.5 L (18.4-52.1) % [place] % (Auto) 6.2 (4.4-15.7) % Eos % (Auto) 2.4 (0.6-8.1) % Baso % (Auto) 0.4 (0.2-1.5) % Neut # (Auto) 4.7 (1.5-6.3) x10-3/uL Lymph # (Auto) 1.0 (1.0-4.4) x10-3/uL [place] # (Auto) 0.4 (0.3-1.0) x10-3/uL Eos # (Auto) 0.2 (0.0-0.8) x10-3/uL Baso # (Auto) 0.0 (0.0-0.1) x10-3/uL Sodium 143 (135-145) mmol/L Potassium 3.6 (3.5-5.3) mmol/L Chloride 108 (100-110) mmol/L Carbon Dioxide 24 (21-32) mmol/L BUN 12 (7-18) mg/dL Creatinine 0.7 (0.55-1.02) mg/dL Est Cr Clr Drug Dosing 65.37 mL/min Estimated GFR (MDRD) > 60 (>60) BUN/Creatinine Ratio 17.1 (9-20) Glucose 86 (80-116) mg/dL Calcium 8.3 L (8.6-10.2) mg/dL Result Diagrams: 10/24/20 08:45 10/24/20 08:45 Jamel Results Last 24 hrs: Microbiology 10/21/20 20:40 Urine Culture - Final Urine, Clean Catch MIXED POSITIVE KARINA DAY 2 Sepsis Event Note - Evaluation Sepsis Screening Result: No Definite Risk - Focused Exam Vital Signs: Vital Signs Temp Pulse Pulse Resp BP Pulse Ox 10/24/20 12:30 99.3 F 81 20 160/91 H 94 L 10/24/20 07:20 99.6 F 85 20 151/94 H 96 10/24/20 04:00 98.3 F 77 18 95 - Problem List & Annotations (1) Partial small bowel obstruction SNOMED Code(s): 135102967 Code(s): K56.600 - PARTIAL INTESTINAL OBSTRUCTION, UNSPECIFIED TO CAUSE Status: Acute Current Visit: Yes (2) Abdominal pain SNOMED Code(s): 92552499 Code(s): R10.9 - UNSPECIFIED ABDOMINAL PAIN Status: Acute Current Visit: Yes (3) Elevated blood pressure reading SNOMED Code(s): 82241285 Code(s): R03.0 - ELEVATED BLOOD-PRESSURE READING, W/O DIAGNOSIS OF HTN St atus: Acute Current Visit: Yes (4) A-fib SNOMED Code(s): 96051496 Code(s): I48.91 - UNSPECIFIED ATRIAL FIBRILLATION Status: Chronic Current Visit: No Qualifiers: Atrial fibrillation type: paroxysmal Qualified Code(s): I48.0 - Paroxysmal atrial fibrillation (5) GERD (gastroesophageal reflux disease) SNOMED Code(s): 686378680 Code(s): K21.9 - GASTRO-ESOPHAGEAL REFLUX DISEASE WITHOUT ESOPHAGITIS Status: Chronic Current Visit: No (6) S/P hysterectomy with oophorectomy SNOMED Code(s): 347174220 Code(s): Z90.710 - ACQUIRED ABSENCE OF BOTH CERVIX AND UTERUS; Z90.721 - ACQUIRED ABSENCE OF OVARIES, UNILATERAL Status: Chronic Current Visit: Yes (7) History of Meckel's diverticulum SNOMED Code(s): 510678200 Code(s): Z87.19 - PERSONAL HISTORY OF OTHER DISEASES OF THE DIGESTIVE SYSTEM Status: Chronic Current Visit: Yes (8) History of bowel resection SNOMED Code(s): 158903784 Code(s): Z90.49 - ACQUIRED ABSENCE OF OTHER SPECIFIED PARTS OF DIGESTIVE TRACT Status: Chronic Current Visit: Yes (9) History of appendectomy SNOMED Code(s): 277547998 Code(s): Z90.49 - ACQUIRED ABSENCE OF OTHER SPECIFIED PARTS OF DIGESTIVE TRACT Status: Chronic Current Visit: Yes (10) History of benign ovarian tumor SNOMED Code(s): 580064317 Code(s): Z86.018 - PERSONAL HISTORY OF OTHER BENIGN NEOPLASM Status: Chronic Current Visit: Yes - Problem List Review Problem List Initiated/Reviewed/Updated: Yes - Plan Plan:: 1. SBO: Dr Mauricio continue to monitor today, may need laparotomy if doesn't improve. NS at 75 ml/hr. 2. Elevated blood pressures: Improved today with decreasing IVF and since NG placed and change of Morphine dose. She used 3 doses of Toradol and 2 doses of Morphine since yesterday. Monitor & adjust as needed. 3. Adjust treatments as necessary. Discharge dependant on if she improves or goes to surgery.
[2020-10-24] MEDS: Sodium Chloride 0.9% 10 ML Syringe FLUSH PRN (15:25)
[2020-10-24] MEDS: Ondansetron 4 MG/2 ML SDV IV PRN (23:44)
[2020-10-25] MEDS: Sodium Chloride 0.9% 1,000 ML IV SCH ×2 (06:52→21:57)
[2020-10-25] MEDS: Enoxaparin 40 MG/0.4 ML Syringe SUBCUT SCH (09:06)
--- NOTE | 2020-10-25 09:09 | PCM.PN ---
- General Info Date of Service: 10/25/20 Admission Dx/Problem (Free Text): Small bowel obstruction Subjective Update: Patient continues to improve. Continues to pass flatus and having less abdominal pain and distention - Review of Systems General: Denies: Fever, Chills Pulmonary: Reports: No Symptoms Gastrointestinal: Reports: Flatus (continues to pass frequent flatus), Other (No BM yet) Genitourinary: Reports: No Symptoms Musculoskeletal: Denies: Leg Pain Psychiatric: Reports: No Symptoms - Patient Data Vitals - Most Recent: Last Vital Signs Temp 97.7 F 10/25/20 04:00 Pulse 75 10/25/20 04:00 Resp 18 10/25/20 04:00 BP 174/86 H 10/25/20 04:00 Pulse Ox 96 10/25/20 04:00 Weight - Most Recent: 157 lb 14.4 oz I&O - Last 24 Hours: Intake & Output 10/24/20 10/25/20 10/25/20 22:59 06:59 14:59 Intake Total 678 625 Output Total 1400 Balance 678 -775 Lab Results Last 24 Hours: Laboratory Results - last 24 hr 10/24/20 Range/Units 08:45 Sodium 143 (135-145) mmol/L Potassium 3.6 (3.5-5.3) mmol/L Chloride 108 (100-110) mmol/L Carbon Dioxide 24 (21-32) mmol/L BUN 12 (7-18) mg/dL Creatinine 0.7 (0.55-1.02) mg/dL Est Cr Clr Drug Dosing 65.37 mL/min Estimated GFR (MDRD) > 60 (>60) BUN/Creatinine Ratio 17.1 (9-20) Glucose 86 (80-116) mg/dL Calcium 8.3 L (8.6-10.2) mg/dL Med Orders - Current: Current Medications Acetaminophen (Acetaminophen 650 Mg Supp) 650 mg RECTAL Q4H PRN PRN Reason: Pain (moderate 4-6) Enoxaparin Sodium (Enoxaparin 40 Mg/0.4 Ml Syringe) 40 mg SUBCUT Q24H [facility] Last Admin: 10/24/20 08:38 Dose: 40 mg Documented by: Sodium Chloride (Normal Saline) 1,000 mls @ 75 mls/hr IV ASDIRECTED [facility] Last Admin: 10/25/20 06:52 Dose: 75 mls/hr Documented by: Ketorolac Tromethamine (Ketorolac 30 Mg/Ml Sdv) 30 mg IVPUSH Q6H PRN PRN Reason: Pain (moderate 4-6) Stop: 10/27/20 08:45 Last Admin: 10/24/20 23:43 Dose: 30 mg Documented by: Morphine Sulfate (Morphine 4 Mg/Ml Vial) 4 mg IVPUSH Q2H PRN PRN Reason: Pain (severe 7-10) Last Admin: 10/23/20 20:25 Dose: 4 mg Documented by: Ondansetron HCl (Ondansetron 4 Mg/2 Ml Sdv) 4 mg IV Q4H PRN PRN Reason: Nausea/Vomiting Last Admin: 10/24/20 23:44 Dose: 4 mg Documented by: Sodium Chloride (Sodium Chloride 0.9% 10 Ml Syringe) 10 ml FLUSH ASDIRECTED PRN PRN Reason: Keep Vein Open Last Admin: 10/24/20 15:25 Dose: 10 ml Documented by: Discontinued Medications Ceftriaxone Sodium (Ceftriaxone 1 Gm Vial) Confirm Administered Dose 1 gm .ROUTE .STK-MED ONE Stop: 10/21/20 22:47 Last Admin: 10/21/20 23:45 Dose: 1 gm Documented by: Ceftriaxone Sodium (Ceftriaxone 1 Gm Vial) 1 gm IVPUSH Q24H [facility] Ceftriaxone Sodium (Ceftriaxone 2 Gm Vial) 1 gm IVPUSH ONETIME ONE Stop: 10/21/20 22:47 Last Admin: 10/22/20 19:29 Dose: 1 gm Documented by: Al Hydroxide/Mg Hydroxide 15 (ml/ Lidocaine HCl 15 ml) 0 ml PO ONETIME ONE Stop: 10/21/20 20:41 Last Admin: 10/21/20 20:56 Dose: 30 ml Documented by: Enoxaparin Sodium (Enoxaparin 40 Mg/0.4 Ml Syringe) 40 mg SUBCUT Q24H [facility] Last Admin: 10/22/20 00:26 Dose: 40 mg Documented by: Sodium Chloride (Normal Saline) 1,000 mls @ 999 mls/hr IV ASDIRECTED [facility] Last Admin: 10/21/20 21:00 Dose: 999 mls/hr Documented by: Ceftriaxone Sodium 1 gm/ (Sodium Chloride) 50 mls @ 200 mls/hr IV Q24H [facility] Stop: 10/21/20 23:59 Last Admin: 10/22/20 07:32 Dose: Not Given Documented by: Iopamidol (Iopamidol 755 Mg/Ml 75 Ml Bottle) 75 ml IV ONETIME ONE Stop: 10/21/20 21:12 Last Admin: 10/21/20 21:19 Dose: 75 ml Documented by: Ketorolac Tromethamine (Ketorolac 30 Mg/Ml Sdv) 30 mg IVPUSH NOW STA Stop: 10/21/20 20:39 Last Admin: 10/21/20 21:24 Dose: 30 mg Documented by: Labetalol HCl (Labetalol 20 Mg/4 Ml Syringe) 20 mg IVPUSH NOW STA; Protocol Stop: 10/21/20 21:51 Last Admin: 10/21/20 21:55 Dose: 20 mg Documented by: Morphine Sulfate (Morphine 2 Mg/Ml Syringe) 2 mg IVPUSH NOW STA Stop: 10/21/20 20:39 Last Admin: 10/21/20 21:30 Dose: 2 mg Documented by: Morphine Sulfate (Morphine 2 Mg/Ml Syringe) Confirm Administered Dose 2 mg .ROUTE .STK-MED ONE Stop: 10/21/20 22:47 Last Admin: 10/21/20 22:44 Dose: 2 mg Documented by: Morphine Sulfate (Morphine 2 Mg/Ml Syringe) 2 mg IVPUSH Q2H PRN PRN Reason: Pain (severe 7-10) Last Admin: 10/22/20 20:28 Dose: 2 mg Documented by: Morphine Sulfate (Morphine 2 Mg/Ml Syringe) 2 mg IVPUSH ONETIME ONE Stop: 10/22/20 19:23 Last Admin: 10/21/20 22:46 Dose: 2 mg Documented by: Ondansetron HCl (Ondansetron 4 Mg/2 Ml Sdv) 4 mg IVPUSH NOW STA Stop: 10/21/20 20:39 Last Admin: 10/21/20 21:11 Dose: 4 mg Documented by: - Exam General: Alert, Oriented GI/Abdominal Exam: Soft, No Distention, No Mass, Tender (mild diffusely but improved). No: Guarding - Patient Data Lab Results Last 24 hrs: Laboratory Results - last 24 hr 10/24/20 Range/Units 08:45 Sodium 143 (135-145) mmol/L Potassium 3.6 (3.5-5.3) mmol/L Chloride 108 (100-110) mmol/L Carbon Dioxide 24 (21-32) mmol/L BUN 12 (7-18) mg/dL Creatinine 0.7 (0.55-1.02) mg/dL Est Cr Clr Drug Dosing 65.37 mL/min Estimated GFR (MDRD) > 60 (>60) BUN/Creatinine Ratio 17.1 (9-20) Glucose 86 (80-116) mg/dL Calcium 8.3 L (8.6-10.2) mg/dL Result Diagrams: 10/24/20 08:45 10/24/20 08:45 Sepsis Event Note - Evaluation Sepsis Screening Result: No Definite Risk - Focused Exam Vital Signs: Vital Signs Temp Pulse Resp BP Pulse Ox Pulse Ox 10/25/20 04:00 97.7 F 75 18 174/86 H 96 10/25/20 00:00 97.6 F 76 18 170/96 H 96 96 - Problem List Review Problem List Initiated/Reviewed/Updated: Yes - My Orders Last 24 Hours: My Active Orders 10/24/20 17:02 Communication Order [RC] Q2HR - Assessment Assessment:: SBO with some improvement more flatus although no BM yet K+ low normal - Plan Plan:: Clamp NG if tolerates then may try to remove later today try tylenol PO for pain increase K in IV .
[2020-10-25] MEDS ORDERED: Acetaminophen 500 MG Tab PO PRN (09:10)
[2020-10-25] MEDS: Acetaminophen/Aspirin/Caffeine 250-250-65 MG Tab PO PRN ×3 (10:00→18:45)
[2020-10-25] MEDS ORDERED: Potassium Chloride 100 ML IV SCH (10:00)
--- NOTE | 2020-10-25 11:34 | PCM.PN ---
- General Info Date of Service: 10/25/20 Subjective Update: She had 500 ml NG in 12 hours, Dr Mauricio ordered to clamp NG today and okay'd some oral Tylenol. She normally drinks 4 cups of coffee/day and has not had any since Tuesday. She states she is having headache today. Passing gas. No BM yet. Pain better controlled. - Patient Data Vitals - Most Recent: Last Vital Signs Temp 98.4 F 10/25/20 07:25 Pulse 74 10/25/20 07:25 Resp 18 10/25/20 07:25 BP 152/75 H 10/25/20 07:25 Pulse Ox 95 10/25/20 07:25 Weight - Most Recent: 157 lb 14.4 oz I&O - Last 24 Hours: Intake & Output 10/24/20 10/25/20 10/25/20 22:59 06:59 14:59 Intake Total 678 625 150 Output Total 1400 600 Balance 678 -574 -450 Med Orders - Current: Current Medications Acetaminophen/Aspirin/Caffeine (Acetaminophen/Aspirin/Caffeine 250-250-65 Mg Tab) 1 tab PO Q4H PRN PRN Reason: Headache/Pain Last Admin: 10/25/20 10:00 Dose: 1 tab Documented by: Enoxaparin Sodium (Enoxaparin 40 Mg/0.4 Ml Syringe) 40 mg SUBCUT Q24H [facility] Last Admin: 10/25/20 09:06 Dose: 40 mg Documented by: Sodium Chloride (Normal Saline) 1,000 mls @ 75 mls/hr IV ASDIRECTED [facility] Last Admin: 10/25/20 06:52 Dose: 75 mls/hr Documented by: Potassium Chloride (Kcl In Water 20 Meq/100 Ml) 100 mls @ 50 mls/hr IV Q2H [facility] Stop: 10/25/20 11:59 Last Admin: 10/25/20 09:40 Dose: 50 mls/hr Documented by: Ketorolac Tromethamine (Ketorolac 30 Mg/Ml Sdv) 30 mg IVPUSH Q6H PRN PRN Reason: Pain (moderate 4-6) Stop: 10/27/20 08:45 Last Admin: 10/24/20 23:43 Dose: 30 mg Documented by: Morphine Sulfate (Morphine 4 Mg/Ml Vial) 4 mg IVPUSH Q2H PRN PRN Reason: Pain (severe 7-10) Last Admin: 10/23/20 20:25 Dose: 4 mg Documented by: Ondansetron HCl (Ondansetron 4 Mg/2 Ml Sdv) 4 mg IV Q4H PRN PRN Reason: Nausea/Vomiting Last Admin: 10/24/20 23:44 Dose: 4 mg Documented by: Sodium Chloride (Sodium Chloride 0.9% 10 Ml Syringe) 10 ml FLUSH ASDIRECTED PRN PRN Reason: Keep Vein Open Last Admin: 10/24/20 15:25 Dose: 10 ml Documented by: Discontinued Medications Acetaminophen (Acetaminophen 650 Mg Supp) 650 mg RECTAL Q4H PRN PRN Reason: Pain (moderate 4-6) Acetaminophen (Acetaminophen 500 Mg Tab) 500 mg PO Q4H PRN PRN Reason: Pain Ceftriaxone Sodium (Ceftriaxone 1 Gm Vial) Confirm Administered Dose 1 gm .ROUTE .STK-MED ONE Stop: 10/21/20 22:47 Last Admin: 10/21/20 23:45 Dose: 1 gm Documented by: Ceftriaxone Sodium (Ceftriaxone 1 Gm Vial) 1 gm IVPUSH Q24H [facility] Ceftriaxone Sodium (Ceftriaxone 2 Gm Vial) 1 gm IVPUSH ONETIME ONE Stop: 10/21/20 22:47 Last Admin: 10/22/20 19:29 Dose: 1 gm Documented by: Al Hydroxide/Mg Hydroxide 15 (ml/ Lidocaine HCl 15 ml) 0 ml PO ONETIME ONE Stop: 10/21/20 20:41 Last Admin: 10/21/20 20:56 Dose: 30 ml Documented by: Enoxaparin Sodium (Enoxaparin 40 Mg/0.4 Ml Syringe) 40 mg SUBCUT Q24H [facility] Last Admin: 10/22/20 00:26 Dose: 40 mg Documented by: Sodium Chloride (Normal Saline) 1,000 mls @ 999 mls/hr IV ASDIRECTED [facility] Last Admin: 10/21/20 21:00 Dose: 999 mls/hr Documented by: Ceftriaxone Sodium 1 gm/ (Sodium Chloride) 50 mls @ 200 mls/hr IV Q24H [facility] Stop: 10/21/20 23:59 Last Admin: 10/22/20 07:32 Dose: Not Given Documented by: Iopamidol (Iopamidol 755 Mg/Ml 75 Ml Bottle) 75 ml IV ONETIME ONE Stop: 10/21/20 21:12 Last Admin: 10/21/20 21:19 Dose: 75 ml Documented by: Ketorolac Tromethamine (Ketorolac 30 Mg/Ml Sdv) 30 mg IVPUSH NOW STA Stop: 10/21/20 20:39 Last Admin: 10/21/20 21:24 Dose: 30 mg Documented by: Labetalol HCl (Labetalol 20 Mg/4 Ml Syringe) 20 mg IVPUSH NOW STA; Protocol Stop: 10/21/20 21:51 Last Admin: 10/21/20 21:55 Dose: 20 mg Documented by: Morphine Sulfate (Morphine 2 Mg/Ml Syringe) 2 mg IVPUSH NOW STA Stop: 10/21/20 20:39 Last Admin: 10/21/20 21:30 Dose: 2 mg Documented by: Morphine Sulfate (Morphine 2 Mg/Ml Syringe) Confirm Administered Dose 2 mg .ROUTE .STK-MED ONE Stop: 10/21/20 22:47 Last Admin: 10/21/20 22:44 Dose: 2 mg Documented by: Morphine Sulfate (Morphine 2 Mg/Ml Syringe) 2 mg IVPUSH Q2H PRN PRN Reason: Pain (severe 7-10) Last Admin: 10/22/20 20:28 Dose: 2 mg Documented by: Morphine Sulfate (Morphine 2 Mg/Ml Syringe) 2 mg IVPUSH ONETIME ONE Stop: 10/22/20 19:23 Last Admin: 10/21/20 22:46 Dose: 2 mg Documented by: Ondansetron HCl (Ondansetron 4 Mg/2 Ml Sdv) 4 mg IVPUSH NOW STA Stop: 10/21/20 20:39 Last Admin: 10/21/20 21:11 Dose: 4 mg Documented by: - Exam General: Alert, Oriented, Cooperative Lungs: Clear to Auscultation, Normal Respiratory Effort Cardiovascular: Regular Rate, Regular Rhythm GI/Abdominal Exam: Soft, No Distention, Guarding, Tender, Abnormal Bowel Sounds (improved BS x 4. ) - Patient Data Result Diagrams: 10/24/20 08:45 10/24/20 08:45 Sepsis Event Note - Evaluation Sepsis Screening Result: No Definite Risk - Focused Exam Vital Signs: Vital Signs Temp Pulse Resp BP Pulse Ox Pulse Ox 10/25/20 07:25 98.4 F 74 18 152/75 H 95 10/25/20 04:00 97.7 F 75 18 174/86 H 96 10/25/20 00:00 97.6 F 76 18 170/96 H 96 96 - Problem List & Annotations (1) Partial small bowel obstruction SNOMED Code(s): 751249594 Code(s): K56.600 - PARTIAL INTESTINAL OBSTRUCTION, UNSPECIFIED TO CAUSE Status: Acute Current Visit: Yes (2) Abdominal pain SNOMED Code(s): 91352276 Code(s): R10.9 - UNSPECIFIED ABDOMINAL PAIN Status: Acute Current Visit: Yes (3) Elevated blood pressure reading SNOMED Code(s): 93428396 Code(s): R03.0 - ELEVATED BLOOD-PRESSURE READING, W/O DIAGNOSIS OF HTN Status: Acute Current Visit: Yes (4) A-fib SNOMED Code(s): 36397118 Code(s): I48.91 - UNSPECIFIED ATRIAL FIBRILLATION Status: Chronic Current Visit: No Qualifiers: Atrial fibrillation type: paroxysmal Qualified Code(s): I48.0 - Paroxysmal atrial fibrillation (5) GERD (gastroesophageal reflux disease) SNOMED Code(s): 189875589 Code(s): K21.9 - GASTRO-ESOPHAGEAL REFLUX DISEASE WITHOUT ESOPHAGITIS Status: Chronic Current Visit: No (6) S/P hysterectomy with oophorectomy SNOMED Code(s): 758156372 Code(s): Z90.710 - ACQUIRED ABSENCE OF BOTH CERVIX AND UTERUS; Z90.721 - ACQUIRED ABSENCE OF OVARIES, UNILATERAL Status: Chronic Current Visit: Yes (7) History of Meckel's diverticulum SNOMED Code(s): 385869120 Code(s): Z87.19 - PERSONAL HISTORY OF OTHER DISEASES OF THE DIGESTIVE SYSTEM Status: Chronic Current Visit: Yes (8) History of bowel resection SNOMED Code(s): 474314015 Code(s): Z90.49 - ACQUIRED ABSENCE OF OTHER SPECIFIED PARTS OF DIGESTIVE TRACT Status: Chronic Current Visit: Yes (9) History of appendectomy SNOMED Code(s): 996256808 Code(s): Z90.49 - ACQUIRED ABSENCE OF OTHER SPECIFIED PARTS OF DIGESTIVE TRACT Status: Chronic Current Visit: Yes (10) History of benign ovarian tumor SNOMED Code(s): 241948992 Code(s): Z86.018 - PERSONAL HISTORY OF OTHER BENIGN NEOPLASM Status: Chronic Current Visit: Yes - Problem List Review Problem List Initiated/Reviewed/Updated: Yes - My Orders Last 24 Hours: My Active Orders 10/25/20 09:17 Acetaminophen/Aspirin/Caffeine [Excedrin Extra Strength] 1 tab PO Q4H PRN 10/25/20 10:00 Potassium Chloride [KCL in Water 20 MEQ/100 ML] 100 ml IV Q2H 10/26/20 06:00 BASIC METABOLIC PANEL,BMP [CHEM] Routine CBC WITH AUTO DIFF [HEME] Routine - Assessment Assessment:: SBO with some improvement more flatus although no BM yet K+ low normal - Plan Plan:: 1. SBO: Dr Mauricio continue to monitor today, clamp NG if tolerates then may try to remove later today. NS at 75 ml/hr as long as she still on NPO. Excedrin extra strength 500 mg q4h as needed headache/pain. Continue Toradol & Morphine as needed. KCl 10 mEq over 1 hour added to NS, repeat BMP tomorrow. 2. Elevated blood pressures: Improved. Monitor & adjust as needed. She had hypotension with low doses of Lisinopril 2.5 and HCTZ 12.5 in the past per patient. 3. Adjust treatments as necessary. Discharge dependant on if she improves or goes to surgery. .
[2020-10-25] MEDS: Ketorolac 30 MG/ML SDV IVPUSH PRN (22:01)
[2020-10-25] MEDS: Sodium Chloride 0.9% 10 ML Syringe FLUSH PRN (22:01)
[2020-10-26] MEDS: Ketorolac 30 MG/ML SDV IVPUSH PRN (04:05)
[2020-10-26] MEDS: Acetaminophen/Aspirin/Caffeine 250-250-65 MG Tab PO PRN ×2 (07:18→15:29)
[2020-10-26] MEDS: Enoxaparin 40 MG/0.4 ML Syringe SUBCUT SCH (08:39)
[2020-10-26] MEDS: Potassium Chloride 100 ML IV SCH ×2 (08:47→11:30)
[2020-10-26] MEDS: Hydrochlorothiazide 12.5 MG Cap PO SCH (08:47)
--- NOTE | 2020-10-26 11:03 | PCM.PN ---
- General Info Date of Service: 10/26/20 Subjective Update: Oksana had NG pulled, diet advanced to clears she has been tolerating. No bloating. Describes as tender but no pain. Blood pressures 185/105 this morning. Passing gas but no BM. - Patient Data Vitals - Most Recent: Last Vital Signs Temp 96.8 F L 10/26/20 04:00 Pulse 73 10/26/20 04:00 Resp 18 10/26/20 04:00 BP 181/105 H 10/26/20 04:00 Pulse Ox 96 10/26/20 04:00 Weight - Most Recent: 157 lb 14.4 oz I&O - Last 24 Hours: Intake & Output 10/25/20 10/26/20 10/26/20 22:59 06:59 14:59 Intake Total 957 580 100 Balance 957 580 100 Lab Results Last 24 Hours: Laboratory Results - last 24 hr 10/26/20 10/26/20 Range/Units 06:15 06:15 WBC 4.5 (3.0-10.3) x10-3/uL RBC 3.87 (3.60-5.20) x10(6)uL Hgb 12.0 (11.4-15.5) g/dL Hct 35.6 (34.2-48.2) % MCV 92.1 (76.7-100.5) fL MCH 31.0 (23.9-33.9) pg MCHC 33.7 (31.9-34.8) g/dL RDW 13.0 (12.3-16.5) % Plt Count 241 (151-488) x10(3)uL MPV 7.1 (7.1-12.4) fL Neut % (Auto) 56.3 (30.8-76.2) % Lymph % (Auto) 28.2 (18.4-52.1) % [place] % (Auto) 10.5 (4.4-15.7) % Eos % (Auto) 4.1 (0.6-8.1) % Baso % (Auto) 0.9 (0.2-1.5) % Neut # (Auto) 2.5 (1.5-6.3) x10-3/uL Lymph # (Auto) 1.3 (1.0-4.4) x10-3/uL [place] # (Auto) 0.5 (0.3-1.0) x10-3/uL Eos # (Auto) 0.2 (0.0-0.8) x10-3/uL Baso # (Auto) 0.0 (0.0-0.1) x10-3/uL Sodium 146 H (135-145) mmol/L Potassium 3.3 L (3.5-5.3) mmol/L Chloride 107 (100-110) mmol/L Carbon Dioxide 28 (21-32) mmol/L BUN 6 L (7-18) mg/dL Creatinine 0.5 L (0.55-1.02) mg/dL Est Cr Clr Drug Dosing 91.52 mL/min Estimated GFR (MDRD) > 60 (>60) BUN/Creatinine Ratio 12.0 (9-20) Glucose 97 (80-116) mg/dL Calcium 8.1 L (8.6-10.2) mg/dL Med Orders - Current: Current Medications Acetaminophen/Aspirin/Caffeine (Acetaminophen/Aspirin/Caffeine 250-250-65 Mg Tab) 1 tab PO Q4H PRN PRN Reason: Headache/Pain Last Admin: 10/26/20 07:18 Dose: 1 tab Documented by: Enoxaparin Sodium (Enoxaparin 40 Mg/0.4 Ml Syringe) 40 mg SUBCUT Q24H [facility] Last Admin: 10/26/20 08:39 Dose: 40 mg Documented by: Hydrochlorothiazide (Hydrochlorothiazide 12.5 Mg Cap) 12.5 mg PO DAILY [facility] Last Admin: 10/26/20 08:47 Dose: 12.5 mg Documented by: Potassium Chloride (Kcl In Water 20 Meq/100 Ml) 100 mls @ 50 mls/hr IV Q2H [facility] Stop: 10/26/20 12:59 Last Admin: 10/26/20 08:47 Dose: 50 mls/hr Documented by: Ketorolac Tromethamine (Ketorolac 30 Mg/Ml Sdv) 30 mg IVPUSH Q6H PRN PRN Reason: Pain (moderate 4-6) Stop: 10/27/20 08:45 Last Admin: 10/26/20 04:05 Dose: 30 mg Documented by: Morphine Sulfate (Morphine 4 Mg/Ml Vial) 4 mg IVPUSH Q2H PRN PRN Reason: Pain (severe 7-10) Last Admin: 10/23/20 20:25 Dose: 4 mg Documented by: Ondansetron HCl (Ondansetron 4 Mg/2 Ml Sdv) 4 mg IV Q4H PRN PRN Reason: Nausea/Vomiting Last Admin: 10/24/20 23:44 Dose: 4 mg Documented by: Sodium Chloride (Sodium Chloride 0.9% 10 Ml Syringe) 10 ml FLUSH ASDIRECTED PRN PRN Reason: Keep Vein Open Last Admin: 10/25/20 22:01 Dose: 10 ml Documented by: Discontinued Medications Acetaminophen (Acetaminophen 650 Mg Supp) 650 mg RECTAL Q4H PRN PRN Reason: Pain (moderate 4-6) Acetaminophen (Acetaminophen 500 Mg Tab) 500 mg PO Q4H PRN PRN Reason: Pain Ceftriaxone Sodium (Ceftriaxone 1 Gm Vial) Confirm Administered Dose 1 gm .ROUTE .STK-MED ONE Stop: 10/21/20 22:47 Last Admin: 10/21/20 23:45 Dose: 1 gm Documented by: Ceftriaxone Sodium (Ceftriaxone 1 Gm Vial) 1 gm IVPUSH Q24H [facility] Ceftriaxone Sodium (Ceftriaxone 2 Gm Vial) 1 gm IVPUSH ONETIME ONE Stop: 10/21/20 22:47 Last Admin: 10/22/20 19:29 Dose: 1 gm Documented by: Al Hydroxide/Mg Hydroxide 15 (ml/ Lidocaine HCl 15 ml) 0 ml PO ONETIME ONE Stop: 10/21/20 20:41 Last Admin: 10/21/20 20:56 Dose: 30 ml Documented by: Enoxaparin Sodium (Enoxaparin 40 Mg/0.4 Ml Syringe) 40 mg SUBCUT Q24H [facility] Last Admin: 10/22/20 00:26 Dose: 40 mg Documented by: Sodium Chloride (Normal Saline) 1,000 mls @ 999 mls/hr IV ASDIRECTED [facility] Last Admin: 10/21/20 21:00 Dose: 999 mls/hr Documented by: Sodium Chloride (Normal Saline) 1,000 mls @ 50 mls/hr IV ASDIRECTED [facility] Last Admin: 10/25/20 21:57 Dose: 75 mls/hr Documented by: Ceftriaxone Sodium 1 gm/ (Sodium Chloride) 50 mls @ 200 mls/hr IV Q24H [facility] Stop: 10/21/20 23:59 Last Admin: 10/22/20 07:32 Dose: Not Given Documented by: Potassium Chloride (Kcl In Water 20 Meq/100 Ml) 100 mls @ 50 mls/hr IV Q2H [facility] Stop: 10/25/20 11:59 Last Admin: 10/25/20 09:40 Dose: 50 mls/hr Documented by: Iopamidol (Iopamidol 755 Mg/Ml 75 Ml Bottle) 75 ml IV ONETIME ONE Stop: 10/21/20 21:12 Last Admin: 10/21/20 21:19 Dose: 75 ml Documented by: Ketorolac Tromethamine (Ketorolac 30 Mg/Ml Sdv) 30 mg IVPUSH NOW STA Stop: 10/21/20 20:39 Last Admin: 10/21/20 21:24 Dose: 30 mg Documented by: Labetalol HCl (Labetalol 20 Mg/4 Ml Syringe) 20 mg IVPUSH NOW STA; Protocol Stop: 10/21/20 21:51 Last Admin: 10/21/20 21:55 Dose: 20 mg Documented by: Morphine Sulfate (Morphine 2 Mg/Ml Syringe) 2 mg IVPUSH NOW STA Stop: 10/21/20 20:39 Last Admin: 10/21/20 21:30 Dose: 2 mg Documented by: Morphine Sulfate (Morphine 2 Mg/Ml Syringe) Confirm Administered Dose 2 mg .ROUTE .STK-MED ONE Stop: 10/21/20 22:47 Last Admin: 10/21/20 22:44 Dose: 2 mg Documented by: Morphine Sulfate (Morphine 2 Mg/Ml Syringe) 2 mg IVPUSH Q2H PRN PRN Reason: Pain (severe 7-10) Last Admin: 10/22/20 20:28 Dose: 2 mg Documented by: Morphine Sulfate (Morphine 2 Mg/Ml Syringe) 2 mg IVPUSH ONETIME ONE Stop: 10/22/20 19:23 Last Admin: 10/21/20 22:46 Dose: 2 mg Documented by: Ondansetron HCl (Ondansetron 4 Mg/2 Ml Sdv) 4 mg IVPUSH NOW STA Stop: 10/21/20 20:39 Last Admin: 10/21/20 21:11 Dose: 4 mg Documented by: - Exam General: Alert, Oriented, Cooperative Lungs: Clear to Auscultation, Normal Respiratory Effort Cardiovascular: Regular Rate, Regular Rhythm GI/Abdominal Exam: Normal Bowel Sounds (hypoactive bs x 4), Soft, No Distention, Guarding, Tender (diffuse more Left but mild) Extremities: No Pedal Edema, Normal Capillary Refill Peripheral Pulses: 2+: Radial (L), Radial (R) - Patient Data Lab Results Last 24 hrs: Laboratory Results - last 24 hr 10/26/20 10/26/20 Range/Units 06:15 06:15 WBC 4.5 (3.0-10.3) x10-3/uL RBC 3.87 (3.60-5.20) x10(6)uL Hgb 12.0 (11.4-15.5) g/dL Hct 35.6 (34.2-48.2) % MCV 92.1 (76.7-100.5) fL MCH 31.0 (23.9-33.9) pg MCHC 33.7 (31.9-34.8) g/dL RDW 13.0 (12.3-16.5) % Plt Count 241 (151-488) x10(3)uL MPV 7.1 (7.1-12.4) fL Neut % (Auto) 56.3 (30.8-76.2) % Lymph % (Auto) 28.2 (18.4-52.1) % [place] % (Auto) 10.5 (4.4-15.7) % Eos % (Auto) 4.1 (0.6-8.1) % Baso % (Auto) 0.9 (0.2-1.5) % Neut # (Auto) 2.5 (1.5-6.3) x10-3/uL Lymph # (Auto) 1.3 (1.0-4.4) x10-3/uL [place] # (Auto) 0.5 (0.3-1.0) x10-3/uL Eos # (Auto) 0.2 (0.0-0.8) x10-3/uL Baso # (Auto) 0.0 (0.0-0.1) x10-3/uL Sodium 146 H (135-145) mmol/L Potassium 3.3 L (3.5-5.3) mmol/L Chloride 107 (100-110) mmol/L Carbon Dioxide 28 (21-32) mmol/L BUN 6 L (7-18) mg/dL Creatinine 0.5 L (0.55-1.02) mg/dL Est Cr Clr Drug Dosing 91.52 mL/min Estimated GFR (MDRD) > 60 (>60) BUN/Creatinine Ratio 12.0 (9-20) Glucose 97 (80-116) mg/dL Calcium 8.1 L (8.6-10.2) mg/dL Result Diagrams: 10/26/20 06:15 10/26/20 06:15 Sepsis Event Note - Evaluation Sepsis Screening Result: No Definite Risk - Focused Exam Vital Signs: Vital Signs Temp Pulse Resp BP Pulse Ox Pulse Ox 10/26/20 04:00 96.8 F L 73 18 181/105 H 96 10/26/20 00:00 98 F 66 18 180/97 H 98 98 - Problem List & Annotations (1) Partial small bowel obstruction SNOMED Code(s): 691015714 Code(s): K56.600 - PARTIAL INTESTINAL OBSTRUCTION, UNSPECIFIED TO CAUSE Status: Acute Current Visit: Yes (2) Abdominal pain SNOMED Code(s): 51669419 Code(s): R10.9 - UNSPECIFIED ABDOMINAL PAIN Status: Acute Current Visit: Yes (3) Elevated blood pressure reading SNOMED Code(s): 40060794 Code(s): R03.0 - ELEVATED BLOOD-PRESSURE READING, W/O DIAGNOSIS OF HTN Status: Acute Current Visit: Yes (4) A-fib SNOMED Code(s): 10851095 Code(s): I48.91 - UNSPECIFIED ATRIAL FIBRILLATION Status: Chronic Current Visit: No Qualifiers: Atrial fibrillation type: paroxysmal Qualified Code(s): I48.0 - Paroxysmal atrial fibrillation (5) GERD (gastroesophageal reflux disease) SNOMED Code(s): 554102578 Code(s): K21.9 - GASTRO-ESOPHAGEAL REFLUX DISEASE WITHOUT ESOPHAGITIS Status: Chronic Current Visit: No (6) S/P hysterectomy with oophorectomy SNOMED Code(s): 735702949 Code(s): Z90.710 - ACQUIRED ABSENCE OF BOTH CERVIX AND UTERUS; Z90.721 - ACQUIRED ABSENCE OF OVARIES, UNILATERAL Status: Chronic Current Visit: Yes (7) History of Meckel's diverticulum SNOMED Code(s): 930868070 Code(s): Z87.19 - PERSONAL HISTORY OF OTHER DISEASES OF THE DIGESTIVE SYSTEM Status: Chronic Current Visit: Yes (8) History of bowel resection SNOMED Code(s): 610659899 Code(s): Z90.49 - ACQUIRED ABSENCE OF OTHER SPECIFIED PARTS OF DIGESTIVE TRACT Status: Chronic Current Visit: Yes (9) History of appendectomy SNOMED Code(s): 493123563 Code(s): Z90.49 - ACQUIRED ABSENCE OF OTHER SPECIFIED PARTS OF DIGESTIVE TRACT Status: Chronic Current Visit: Yes (10) History of benign ovarian tumor SNOMED Code(s): 745040382 Code(s): Z86.018 - PERSONAL HISTORY OF OTHER BENIGN NEOPLASM Status: Chronic Current Visit: Yes - Problem List Review Problem List Initiated/Reviewed/Updated: Yes - My Orders Last 24 Hours: My Active Orders 10/26/20 08:38 Convert IV to Peripheral Lock [Convert IV to Saline Lock] [OM.PC] Routine 10/26/20 09:00 Potassium Chloride [KCL in Water 20 MEQ/100 ML] 100 ml IV Q2H hydroCHLOROthiazide 12.5 mg PO DAILY 10/27/20 06:00 BASIC METABOLIC PANEL,BMP [CHEM] Routine - Assessment Assessment:: SBO with some improvement more flatus although no BM yet K+ low normal - Plan Plan:: 1. SBO: Dr Hang aren[place]. NG pulled last night and diet advanced to clears. Saline lock. Excedrin extra strength 500 mg q4h as needed headache/pain. Continue Toradol & Morphine as needed. KCl 20 mEq over 2 hour, repeat BMP tomorrow. 2. Elevated blood pressures: Elevated again today 185/105, given HCTZ 12.5 mg x 1. Monitor & adjust as needed. 3. Adjust treatments as necessary. Discharge dependant on if she improves. .
--- NOTE | 2020-10-26 11:04 | PCM.PN ---
- General Info Date of Service: 10/26/20 Admission Dx/Problem (Free Text): Small bowel obstruction Subjective Update: toerating small amounts of clear liquids - flatus but no stool yet Functional Status: Reports: Pain Controlled (mild soreness with movement but no pain like upon admission) - Review of Systems General: Denies: Fever Pulmonary: Reports: No Symptoms Gastrointestinal: Reports: Flatus, Other (no stool yet). Denies: Nausea, Vomiting Genitourinary: Reports: No Symptoms - Patient Data Vitals - Most Recent: Last Vital Signs Temp 96.8 F L 10/26/20 04:00 Pulse 73 10/26/20 04:00 Resp 18 10/26/20 04:00 BP 181/105 H 10/26/20 04:00 Pulse Ox 96 10/26/20 04:00 Weight - Most Recent: 157 lb 14.4 oz I&O - Last 24 Hours: Intake & Output 10/25/20 10/26/20 10/26/20 22:59 06:59 14:59 Intake Total 957 580 100 Balance 957 580 100 Lab Results Last 24 Hours: Laboratory Results - last 24 hr 10/26/20 10/26/20 Range/Units 06:15 06:15 WBC 4.5 (3.0-10.3) x10-3/uL RBC 3.87 (3.60-5.20) x10(6)uL Hgb 12.0 (11.4-15.5) g/dL Hct 35.6 (34.2-48.2) % MCV 92.1 (76.7-100.5) fL MCH 31.0 (23.9-33.9) pg MCHC 33.7 (31.9-34.8) g/dL RDW 13.0 (12.3-16.5) % Plt Count 241 (151-488) x10(3)uL MPV 7.1 (7.1-12.4) fL Neut % (Auto) 56.3 (30.8-76.2) % Lymph % (Auto) 28.2 (18.4-52.1) % [place] % (Auto) 10.5 (4.4-15.7) % Eos % (Auto) 4.1 (0.6-8.1) % Baso % (Auto) 0.9 (0.2-1.5) % Neut # (Auto) 2.5 (1.5-6.3) x10-3/uL Lymph # (Auto) 1.3 (1.0-4.4) x10-3/uL [place] # (Auto) 0.5 (0.3-1.0) x10-3/uL Eos # (Auto) 0.2 (0.0-0.8) x10-3/uL Baso # (Auto) 0.0 (0.0-0.1) x10-3/uL Sodium 146 H (135-145) mmol/L Potassium 3.3 L (3.5-5.3) mmol/L Chloride 107 (100-110) mmol/L Carbon Dioxide 28 (21-32) mmol/L BUN 6 L (7-18) mg/dL Creatinine 0.5 L (0.55-1.02) mg/dL Est Cr Clr Drug Dosing 91.52 mL/min Estimated GFR (MDRD) > 60 (>60) BUN/Creatinine Ratio 12.0 (9-20) Glucose 97 (80-116) mg/dL Calcium 8.1 L (8.6-10.2) mg/dL Med Orders - Current: Current Medications Acetaminophen/Aspirin/Caffeine (Acetaminophen/Aspirin/Caffeine 250-250-65 Mg Tab) 1 tab PO Q4H PRN PRN Reason: Headache/Pain Last Admin: 10/26/20 07:18 Dose: 1 tab Documented by: Enoxaparin Sodium (Enoxaparin 40 Mg/0.4 Ml Syringe) 40 mg SUBCUT Q24H [facility] Last Admin: 10/26/20 08:39 Dose: 40 mg Documented by: Hydrochlorothiazide (Hydrochlorothiazide 12.5 Mg Cap) 12.5 mg PO DAILY [facility] Last Admin: 10/26/20 08:47 Dose: 12.5 mg Documented by: Potassium Chloride (Kcl In Water 20 Meq/100 Ml) 100 mls @ 50 mls/hr IV Q2H [facility] Stop: 10/26/20 12:59 Last Admin: 10/26/20 08:47 Dose: 50 mls/hr Documented by: Ketorolac Tromethamine (Ketorolac 30 Mg/Ml Sdv) 30 mg IVPUSH Q6H PRN PRN Reason: Pain (moderate 4-6) Stop: 10/27/20 08:45 Last Admin: 10/26/20 04:05 Dose: 30 mg Documented by: Morphine Sulfate (Morphine 4 Mg/Ml Vial) 4 mg IVPUSH Q2H PRN PRN Reason: Pain (severe 7-10) Last Admin: 10/23/20 20:25 Dose: 4 mg Documented by: Ondansetron HCl (Ondansetron 4 Mg/2 Ml Sdv) 4 mg IV Q4H PRN PRN Reason: Nausea/Vomiting Last Admin: 10/24/20 23:44 Dose: 4 mg Documented by: Sodium Chloride (Sodium Chloride 0.9% 10 Ml Syringe) 10 ml FLUSH ASDIRECTED PRN PRN Reason: Keep Vein Open Last Admin: 10/25/20 22:01 Dose: 10 ml Documented by: Discontinued Medications Acetaminophen (Acetaminophen 650 Mg Supp) 650 mg RECTAL Q4H PRN PRN Reason: Pain (moderate 4-6) Acetaminophen (Acetaminophen 500 Mg Tab) 500 mg PO Q4H PRN PRN Reason: Pain Ceftriaxone Sodium (Ceftriaxone 1 Gm Vial) Confirm Administered Dose 1 gm .ROUTE .STK-MED ONE Stop: 10/21/20 22:47 Last Admin: 10/21/20 23:45 Dose: 1 gm Documented by: Ceftriaxone Sodium (Ceftriaxone 1 Gm Vial) 1 gm IVPUSH Q24H [facility] Ceftriaxone Sodium (Ceftriaxone 2 Gm Vial) 1 gm IVPUSH ONETIME ONE Stop: 10/21/20 22:47 Last Admin: 10/22/20 19:29 Dose: 1 gm Documented by: Al Hydroxide/Mg Hydroxide 15 (ml/ Lidocaine HCl 15 ml) 0 ml PO ONETIME ONE Stop: 10/21/20 20:41 Last Admin: 10/21/20 20:56 Dose: 30 ml Documented by: Enoxaparin Sodium (Enoxaparin 40 Mg/0.4 Ml Syringe) 40 mg SUBCUT Q24H [facility] Last Admin: 10/22/20 00:26 Dose: 40 mg Documented by: Sodium Chloride (Normal Saline) 1,000 mls @ 999 mls/hr IV ASDIRECTED [facility] Last Admin: 10/21/20 21:00 Dose: 999 mls/hr Documented by: Sodium Chloride (Normal Saline) 1,000 mls @ 50 mls/hr IV ASDIRECTED [facility] Last Admin: 10/25/20 21:57 Dose: 75 mls/hr Documented by: Ceftriaxone Sodium 1 gm/ (Sodium Chloride) 50 mls @ 200 mls/hr IV Q24H [facility] Stop: 10/21/20 23:59 Last Admin: 10/22/20 07:32 Dose: Not Given Documented by: Potassium Chloride (Kcl In Water 20 Meq/100 Ml) 100 mls @ 50 mls/hr IV Q2H [facility] Stop: 10/25/20 11:59 Last Admin: 10/25/20 09:40 Dose: 50 mls/hr Documented by: Iopamidol (Iopamidol 755 Mg/Ml 75 Ml Bottle) 75 ml IV ONETIME ONE Stop: 10/21/20 21:12 Last Admin: 10/21/20 21:19 Dose: 75 ml Documented by: Ketorolac Tromethamine (Ketorolac 30 Mg/Ml Sdv) 30 mg IVPUSH NOW STA Stop: 10/21/20 20:39 Last Admin: 10/21/20 21:24 Dose: 30 mg Documented by: Labetalol HCl (Labetalol 20 Mg/4 Ml Syringe) 20 mg IVPUSH NOW STA; Protocol Stop: 10/21/20 21:51 Last Admin: 10/21/20 21:55 Dose: 20 mg Documented by: Morphine Sulfate (Morphine 2 Mg/Ml Syringe) 2 mg IVPUSH NOW STA Stop: 10/21/20 20:39 Last Admin: 10/21/20 21:30 Dose: 2 mg Documented by: Morphine Sulfate (Morphine 2 Mg/Ml Syringe) Confirm Administered Dose 2 mg .ROUTE .STK-MED ONE Stop: 10/21/20 22:47 Last Admin: 10/21/20 22:44 Dose: 2 mg Documented by: Morphine Sulfate (Morphine 2 Mg/Ml Syringe) 2 mg IVPUSH Q2H PRN PRN Reason: Pain (severe 7-10) Last Admin: 10/22/20 20:28 Dose: 2 mg Documented by: Morphine Sulfate (Morphine 2 Mg/Ml Syringe) 2 mg IVPUSH ONETIME ONE Stop: 10/22/20 19:23 Last Admin: 10/21/20 22:46 Dose: 2 mg Documented by: Ondansetron HCl (Ondansetron 4 Mg/2 Ml Sdv) 4 mg IVPUSH NOW STA Stop: 10/21/20 20:39 Last Admin: 10/21/20 21:11 Dose: 4 mg Documented by: - Exam General: Alert, Oriented Lungs: Normal Respiratory Effort GI/Abdominal Exam: Soft, Non-Tender, No Distention. No: Guarding - Patient Data Lab Results Last 24 hrs: Laboratory Results - last 24 hr 10/26/20 10/26/20 Range/Units 06:15 06:15 WBC 4.5 (3.0-10.3) x10-3/uL RBC 3.87 (3.60-5.20) x10(6)uL Hgb 12.0 (11.4-15.5) g/dL Hct 35.6 (34.2-48.2) % MCV 92.1 (76.7-100.5) fL MCH 31.0 (23.9-33.9) pg MCHC 33.7 (31.9-34.8) g/dL RDW 13.0 (12.3-16.5) % Plt Count 241 (151-488) x10(3)uL MPV 7.1 (7.1-12.4) fL Neut % (Auto) 56.3 (30.8-76.2) % Lymph % (Auto) 28.2 (18.4-52.1) % [place] % (Auto) 10.5 (4.4-15.7) % Eos % (Auto) 4.1 (0.6-8.1) % Baso % (Auto) 0.9 (0.2-1.5) % Neut # (Auto) 2.5 (1.5-6.3) x10-3/uL Lymph # (Auto) 1.3 (1.0-4.4) x10-3/uL [place] # (Auto) 0.5 (0.3-1.0) x10-3/uL Eos # (Auto) 0.2 (0.0-0.8) x10-3/uL Baso # (Auto) 0.0 (0.0-0.1) x10-3/uL Sodium 146 H (135-145) mmol/L Potassium 3.3 L (3.5-5.3) mmol/L Chloride 107 (100-110) mmol/L Carbon Dioxide 28 (21-32) mmol/L BUN 6 L (7-18) mg/dL Creatinine 0.5 L (0.55-1.02) mg/dL Est Cr Clr Drug Dosing 91.52 mL/min Estimated GFR (MDRD) > 60 (>60) BUN/Creatinine Ratio 12.0 (9-20) Glucose 97 (80-116) mg/dL Calcium 8.1 L (8.6-10.2) mg/dL Result Diagrams: 10/26/20 06:15 10/26/20 06:15 Sepsis Event Note - Evaluation Sepsis Screening Result: No Definite Risk - Focused Exam Vital Signs: Vital Signs Temp Pulse Resp BP Pulse Ox Pulse Ox 10/26/20 04:00 96.8 F L 73 18 181/105 H 96 10/26/20 00:00 98 F 66 18 180/97 H 98 98 - Problem List Review Problem List Initiated/Reviewed/Updated: Yes - My Orders Last 24 Hours: My Active Orders 10/26/20 Breakfast Full Liquid Diet [DIET] - Assessment Assessment:: SBO with apparent continued improvement more flatus although no BM yet K+ low normal tolerating small amounts of clear liquids - Plan Plan:: 1. will increase to full liquids PO. 2. Elevated blood pressures: Improved. Monitor & adjust as needed. She had hypotension with low doses of Lisinopril 2.5 and HCTZ 12.5 in the past per patient. 3. Adjust treatments as necessary. Discharge dependant on if she improves or goes to surgery. 4. receiving K+ replacement for low K+ .
[2020-10-26] MEDS ORDERED: Sodium Chloride 0.9% 1,000 ML IV SCH (11:30)
[2020-10-26] MEDS ORDERED: Acetaminophen 325 MG Tab PO PRN (13:59)
[2020-10-27] MEDS: Enoxaparin 40 MG/0.4 ML Syringe SUBCUT SCH (09:20)
[2020-10-27] MEDS: Hydrochlorothiazide 12.5 MG Cap PO SCH (09:20)
[2020-10-27] MEDS: Acetaminophen/Aspirin/Caffeine 250-250-65 MG Tab PO PRN (09:23)
--- NOTE | 2020-10-27 12:18 | PCM.PN ---
- General Info Date of Service: 10/27/20 Admission Dx/Problem (Free Text): Small bowel obstruction resolving Subjective Update: tolerating full liquids slowly and taking PO fluids well, initially feels full after eating but then this feeling clears and she has no abdominal pain - Review of Systems Pulmonary: Reports: No Symptoms Gastrointestinal: Reports: Flatus, Other (Had small stool) Genitourinary: Reports: No Symptoms - Patient Data Vitals - Most Recent: Last Vital Signs Temp 97.9 F 10/27/20 08:00 Pulse 82 10/27/20 08:00 Resp 16 10/27/20 08:00 BP 166/90 H 10/27/20 08:00 Pulse Ox 96 10/27/20 08:00 Weight - Most Recent: 157 lb 14.4 oz Lab Results Last 24 Hours: Laboratory Results - last 24 hr 10/27/20 Range/Units 06:00 Sodium 145 (135-145) mmol/L Potassium 3.3 L (3.5-5.3) mmol/L Chloride 105 (100-110) mmol/L Carbon Dioxide 31 (21-32) mmol/L BUN 6 L (7-18) mg/dL Creatinine 0.7 (0.55-1.02) mg/dL Est Cr Clr Drug Dosing 65.37 mL/min Estimated GFR (MDRD) > 60 (>60) BUN/Creatinine Ratio 8.6 L (9-20) Glucose 112 (80-116) mg/dL Calcium 8.9 (8.6-10.2) mg/dL Med Orders - Current: Current Medications Acetaminophen (Acetaminophen 325 Mg Tab) 650 mg PO Q4H PRN PRN Reason: Pain Last Admin: 10/26/20 22:59 Dose: 650 mg Documented by: Acetaminophen/Aspirin/Caffeine (Acetaminophen/Aspirin/Caffeine 250-250-65 Mg Tab) 1 tab PO Q4H PRN PRN Reason: Headache/Pain Last Admin: 10/27/20 09:23 Dose: 1 tab Documented by: Enoxaparin Sodium (Enoxaparin 40 Mg/0.4 Ml Syringe) 40 mg SUBCUT Q24H [facility] Last Admin: 10/27/20 09:20 Dose: 40 mg Documented by: Hydrochlorothiazide (Hydrochlorothiazide 12.5 Mg Cap) 12.5 mg PO DAILY [facility] Last Admin: 10/27/20 09:20 Dose: 12.5 mg Documented by: Morphine Sulfate (Morphine 4 Mg/Ml Vial) 4 mg IVPUSH Q2H PRN PRN Reason: Pain (severe 7-10) Last Admin: 10/23/20 20:25 Dose: 4 mg Documented by: Ondansetron HCl (Ondansetron 4 Mg/2 Ml Sdv) 4 mg IV Q4H PRN PRN Reason: Nausea/Vomiting Last Admin: 10/24/20 23:44 Dose: 4 mg Documented by: Sodium Chloride (Sodium Chloride 0.9% 10 Ml Syringe) 10 ml FLUSH ASDIRECTED PRN PRN Reason: Keep Vein Open Last Admin: 10/25/20 22:01 Dose: 10 ml Documented by: Discontinued Medications Acetaminophen (Acetaminophen 650 Mg Supp) 650 mg RECTAL Q4H PRN PRN Reason: Pain (moderate 4-6) Acetaminophen (Acetaminophen 500 Mg Tab) 500 mg PO Q4H PRN PRN Reason: Pain Ceftriaxone Sodium (Ceftriaxone 1 Gm Vial) Confirm Administered Dose 1 gm .ROUTE .STK-MED ONE Stop: 10/21/20 22:47 Last Admin: 10/21/20 23:45 Dose: 1 gm Documented by: Ceftriaxone Sodium (Ceftriaxone 1 Gm Vial) 1 gm IVPUSH Q24H [facility] Ceftriaxone Sodium (Ceftriaxone 2 Gm Vial) 1 gm IVPUSH ONETIME ONE Stop: 10/21/20 22:47 Last Admin: 10/22/20 19:29 Dose: 1 gm Documented by: Al Hydroxide/Mg Hydroxide 15 (ml/ Lidocaine HCl 15 ml) 0 ml PO ONETIME ONE Stop: 10/21/20 20:41 Last Admin: 10/21/20 20:56 Dose: 30 ml Documented by: Enoxaparin Sodium (Enoxaparin 40 Mg/0.4 Ml Syringe) 40 mg SUBCUT Q24H [facility] Last Admin: 10/22/20 00:26 Dose: 40 mg Documented by: Sodium Chloride (Normal Saline) 1,000 mls @ 999 mls/hr IV ASDIRECTED [facility] Last Admin: 10/21/20 21:00 Dose: 999 mls/hr Documented by: Sodium Chloride (Normal Saline) 1,000 mls @ 50 mls/hr IV ASDIRECTED [facility] Last Admin: 10/25/20 21:57 Dose: 75 mls/hr Documented by: Ceftriaxone Sodium 1 gm/ (Sodium Chloride) 50 mls @ 200 mls/hr IV Q24H [facility] Stop: 10/21/20 23:59 Last Admin: 10/22/20 07:32 Dose: Not Given Documented by: Potassium Chloride (Kcl In Water 20 Meq/100 Ml) 100 mls @ 50 mls/hr IV Q2H [facility] Stop: 10/25/20 11:59 Last Admin: 10/25/20 09:40 Dose: 50 mls/hr Documented by: Potassium Chloride (Kcl In Water 20 Meq/100 Ml) 100 mls @ 50 mls/hr IV Q2H [facility] Stop: 10/26/20 12:59 Last Admin: 10/26/20 11:30 Dose: 50 mls/hr Documented by: Sodium Chloride (Normal Saline) 1,000 mls @ 50 mls/hr IV ASDIRECTED [facility] Last Admin: 10/26/20 11:30 Dose: 50 mls/hr Documented by: Iopamidol (Iopamidol 755 Mg/Ml 75 Ml Bottle) 75 ml IV ONETIME ONE Stop: 10/21/20 21:12 Last Admin: 10/21/20 21:19 Dose: 75 ml Documented by: Ketorolac Tromethamine (Ketorolac 30 Mg/Ml Sdv) 30 mg IVPUSH NOW STA Stop: 10/21/20 20:39 Last Admin: 10/21/20 21:24 Dose: 30 mg Documented by: Ketorolac Tromethamine (Ketorolac 30 Mg/Ml Sdv) 30 mg IVPUSH Q6H PRN PRN Reason: Pain (moderate 4-6) Stop: 10/27/20 08:45 Last Admin: 10/26/20 04:05 Dose: 30 mg Documented by: Labetalol HCl (Labetalol 20 Mg/4 Ml Syringe) 20 mg IVPUSH NOW STA; Protocol Stop: 10/21/20 21:51 Last Admin: 10/21/20 21:55 Dose: 20 mg Documented by: Morphine Sulfate (Morphine 2 Mg/Ml Syringe) 2 mg IVPUSH NOW STA Stop: 10/21/20 20:39 Last Admin: 10/21/20 21:30 Dose: 2 mg Documented by: Morphine Sulfate (Morphine 2 Mg/Ml Syringe) Confirm Administered Dose 2 mg .ROUTE .STK-MED ONE Stop: 10/21/20 22:47 Last Admin: 10/21/20 22:44 Dose: 2 mg Documented by: Morphine Sulfate (Morphine 2 Mg/Ml Syringe) 2 mg IVPUSH Q2H PRN PRN Reason: Pain (severe 7-10) Last Admin: 10/22/20 20:28 Dose: 2 mg Documented by: Morphine Sulfate (Morphine 2 Mg/Ml Syringe) 2 mg IVPUSH ONETIME ONE Stop: 10/22/20 19:23 Last Admin: 10/21/20 22:46 Dose: 2 mg Documented by: Ondansetron HCl (Ondansetron 4 Mg/2 Ml Sdv) 4 mg IVPUSH NOW STA Stop: 10/21/20 20:39 Last Admin: 10/21/20 21:11 Dose: 4 mg Documented by: - Exam General: Alert, Oriented GI/Abdominal Exam: Soft, Non-Tender, No Distention - Patient Data Lab Results Last 24 hrs: Laboratory Results - last 24 hr 10/27/20 Range/Units 06:00 Sodium 145 (135-145) mmol/L Potassium 3.3 L (3.5-5.3) mmol/L Chloride 105 (100-110) mmol/L Carbon Dioxide 31 (21-32) mmol/L BUN 6 L (7-18) mg/dL Creatinine 0.7 (0.55-1.02) mg/dL Est Cr Clr Drug Dosing 65.37 mL/min Estimated GFR (MDRD) > 60 (>60) BUN/Creatinine Ratio 8.6 L (9-20) Glucose 112 (80-116) mg/dL Calcium 8.9 (8.6-10.2) mg/dL Result Diagrams: 10/26/20 06:15 10/27/20 06:00 Sepsis Event Note - Evaluation Sepsis Screening Result: No Definite Risk - Focused Exam Vital Signs: Vital Signs Temp Pulse Resp BP Pulse Ox 10/27/20 08:00 97.9 F 82 16 166/90 H 96 10/27/20 04:00 80 18 170/98 H 98 - Problem List Review Problem List Initiated/Reviewed/Updated: Yes - Assessment Assessment:: SBO with apparent continued improvement more flatus and now has had small BM K+ low but receiving supplement tolerating full liquids fairly well - Plan Plan:: 1. Cleared from surgical standpoint for discharge 2. Follow up with me in about 1 week 3. Soft diet until GI system returns to normal .
--- NOTE | 2020-10-27 15:22 | PCM.DCSUM1 ---
Discharge Summary - Hospital Course HPI Initial Comments: Mayela presented to the ED because of abdominal pain which started 3 days ago, early Tuesday am and got worse today. Has epigastric pain, describes as sharp, and twisting, rates 8/10 with associated nausea but no vomiting or diarrhea, tends to be more constipated. There is no fever or chills, no urinary symptoms. She ate yesterday and did not vomit. 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 She has precancerous polyps found on colonoscopy 09/2018, due to have repeat colonoscopy in 09/2021. No cough, shortness of breath, chest pain. She states she has had similar episodes before but she backed off on her eating and they resolved on their own without going to the hospital. Diagnosis: Stroke: No - Discharge Data Discharge Date: 10/27/20 Discharge Disposition: Home, Self-Care 01 Condition: Good - Referral to Home Health Primary Care Physician: PCP Not In Area - Discharge Diagnosis/Problem(s) (1) Partial small bowel obstruction SNOMED Code(s): 841478102 ICD Code: K56.600 - PARTIAL INTESTINAL OBSTRUCTION, UNSPECIFIED TO CAUSE Status: Acute Problem Details: improving (2) Abdominal pain SNOMED Code(s): 79363932 ICD Code: R10.9 - UNSPECIFIED ABDOMINAL PAIN Status: Acute (3) Elevated blood pressure reading SNOMED Code(s): 96463353 ICD Code: R03.0 - ELEVATED BLOOD-PRESSURE READING, W/O DIAGNOSIS OF HTN Status: Acute (4) A-fib SNOMED Code(s): 96202036 ICD Code: I48.91 - UNSPECIFIED ATRIAL FIBRILLATION Status: Chronic Qualifiers: Atrial fibrillation type: paroxysmal Qualified Code(s): I48.0 - Paroxysmal atrial fibrillation (5) GERD (gastroesophageal reflux disease) SNOMED Code(s): 850114822 ICD Code: K21.9 - GASTRO-ESOPHAGEAL REFLUX DISEASE WITHOUT ESOPHAGITIS Status: Chronic (6) S/P hysterectomy with oophorectomy SNOMED Code(s): 269486666 ICD Code: Z90.710 - ACQUIRED ABSENCE OF BOTH CERVIX AND UTERUS; Z90.721 - ACQUIRED ABSENCE OF OVARIES, UNILATERAL Status: Chronic (7) History of Meckel's diverticulum SNOMED Code(s): 771963038 ICD Code: Z87.19 - PERSONAL HISTORY OF OTHER DISEASES OF THE DIGESTIVE SYSTEM Status: Chronic (8) History of bowel resection SNOMED Code(s): 317877069 ICD Code: Z90.49 - ACQUIRED ABSENCE OF OTHER SPECIFIED PARTS OF DIGESTIVE TRACT Status: Chronic (9) History of appendectomy SNOMED Code(s): 299314354 ICD Code: Z90.49 - ACQUIRED ABSENCE OF OTHER SPECIFIED PARTS OF DIGESTIVE TRACT Status: Chronic (10) History of benign ovarian tumor SNOMED Code(s): 193926679 ICD Code: Z86.018 - PERSONAL HISTORY OF OTHER BENIGN NEOPLASM Status: Chronic - Patient Summary/Data Consults: Consultations 10/22/20 08:53 Consult to Physician [CONS] Routine Consulting Provider: Zack Mauricio Call Completed to Consulting Physician: Yes Reason for Consult: sbo Person Notified: Dr Mauricio Date Notified: 10/22/20 Time Notified: 08:52 Hospital Course: She had bowel rest until , she started passing minimal gas by that time. Dr Mauricio followed since admission. She had NG placed to decompress stomach evening in anticipation if she did not progress she would have surgery on Tuesday. After NG placed she started passing more gas, her diet was advanced to clear on Tue then Full liquids on Tuesday, she had 3 small hard stool overnight Tuesday, diet advanced to soft. Her IVF were initially at 125 ml/hr but she had elevated blood pressures so decreased to 75 ml/hr, she was saline locked on Tuesday when diet advanced to clears. Morphine was increased to 4 mg q2h as needed and had Toradol 30 mg IV q6h as needed. She had caffeine headache on Tuesday, Dr Mauricio was okay with oral meds with sips of water. Also HCTZ 12.5 mg daily was added at that time. Her blood pressures came down from 180s/90s to 142/81 at discharge. She has not used Morphine since evening. She will follow up at [facility] end of this week for blood pressure recheck and to establish PCP care. Follow up with Dr Mauricio on Nov 05 at [facility]. - Patient Instructions Diet: GI Soft/Low Residue/Low Fiber Activity: As Tolerated Driving: Do Not Drive Showering/Bathing: May Shower Notify Provider of: Fever, Increased Pain, Nausea and/or Vomiting Other/Special Instructions: Follow up at [facility] at end of this week in regards to your blood pressure. Follow up with Dr Mauricio at [facility] next to recheck your small bowel obstruction. - Discharge Plan *PRESCRIPTION DRUG MONITORING PROGRAM REVIEWED*: Not Applicable *COPY OF PRESCRIPTION DRUG MONITORING REPORT IN PATIENT AMINA: Not Applicable Home Medications: Home Meds .Calcium 1 dose PO DAILY 10/21/20 [History] .Cayenne Pepper 1 dose PO DAILY 10/21/20 [History] .Coq10 1 dose PO DAILY 10/21/20 [History] .Niacin 1 dose PO DAILY 10/21/20 [History] .Potassium (Otc) 1 dose PO DAILY 10/21/20 [History] .Tumeric 1 dose PO DAILY 10/21/20 [History] .Vitamin D 1 dose PO DAILY 10/21/20 [History] .Zinc 1 dose PO DAILY 10/21/20 [History] Aspirin 650 mg PO BEDTIME 10/22/20 [History] Coffee Xt/Phosphatidyl Serine [Neuriva Original 100-100Mg Cap] 1 cap PO DAILY 10/22/20 [History] Propylene Glycol/PEG 400/Pf [Systane 0.3-0.4% Eye Drop] 1 drop EYEBOTH Q4H PRN 10/22/20 [History] Vit C/E/Zn/Coppr/Lutein/Zeaxan [Preservision Areds 2 Softgel] 1 cap PO DAILY 10/22/20 [History] Acetaminophen [Tylenol] 650 mg PO Q4H PRN tablet 10/27/20 [Rx] hydroCHLOROthiazide [Hydrochlorothiazide] 12.5 mg PO DAILY cap 10/27/20 [Rx] Oxygen Therapy Mode: Room Air Patient Handouts: Bowel Obstruction, [id number] Forms: ED Department Discharge Referrals: Lucia Mcleod PA-C [Ordering Only Provider] - - Discharge Summary/Plan Comment DC Time >30 min.: No Total # of Minutes for Discharge Time: 12 min - General Info Date of Service: 10/27/20 Subjective Update: Oksana is feeling much better. She states she has some HCTZ 25 mg tablets at home that she can split. She follow up at [facility], Lucia Mcleod who retired but will be establish care with another provider there in regards to follow up on her blood pressure. She had 3 very small hard stools overnight. Pain improved. - Patient Data Vitals - Most Recent: Last Vital Signs Temp 99.1 F 10/27/20 12:00 Pulse 67 10/27/20 12:00 Resp 18 10/27/20 12:00 BP 142/81 H 10/27/20 12:00 Pulse Ox 96 10/27/20 12:00 Weight - Most Recent: 157 lb 14.4 oz I&O - Last 24 hours: Intake & Output 10/27/20 10/27/20 10/27/20 06:59 14:59 22:59 Intake Total 360 Balance 360 Lab Results - Last 24 hrs: Laboratory Results - last 24 hr 10/27/20 Range/Units 06:00 Sodium 145 (135-145) mmol/L Potassium 3.3 L (3.5-5.3) mmol/L Chloride 105 (100-110) mmol/L Carbon Dioxide 31 (21-32) mmol/L BUN 6 L (7-18) mg/dL Creatinine 0.7 (0.55-1.02) mg/dL Est Cr Clr Drug Dosing 65.37 mL/min Estimated GFR (MDRD) > 60 (>60) BUN/Creatinine Ratio 8.6 L (9-20) Glucose 112 (80-116) mg/dL Calcium 8.9 (8.6-10.2) mg/dL Med Orders - Current: Current Medications Discontinued Medications Acetaminophen (Acetaminophen 650 Mg Supp) 650 mg RECTAL Q4H PRN PRN Reason: Pain (moderate 4-6) Acetaminophen (Acetaminophen 500 Mg Tab) 500 mg PO Q4H PRN PRN Reason: Pain Acetaminophen (Acetaminophen 325 Mg Tab) 650 mg PO Q4H PRN PRN Reason: Pain Last Admin: 10/26/20 22:59 Dose: 650 mg Documented by: Acetaminophen/Aspirin/Caffeine (Acetaminophen/Aspirin/Caffeine 250-250-65 Mg Tab) 1 tab PO Q4H PRN PRN Reason: Headache/Pain Last Admin: 10/27/20 09:23 Dose: 1 tab Documented by: Ceftriaxone Sodium (Ceftriaxone 1 Gm Vial) Confirm Administered Dose 1 gm .ROUTE .STK-MED ONE Stop: 10/21/20 22:47 Last Admin: 10/21/20 23:45 Dose: 1 gm Documented by: Ceftriaxone Sodium (Ceftriaxone 1 Gm Vial) 1 gm IVPUSH Q24H [facility] Ceftriaxone Sodium (Ceftriaxone 2 Gm Vial) 1 gm IVPUSH ONETIME ONE Stop: 10/21/20 22:47 Last Admin: 10/22/20 19:29 Dose: 1 gm Documented by: Al Hydroxide/Mg Hydroxide 15 (ml/ Lidocaine HCl 15 ml) 0 ml PO ONETIME ONE Stop: 10/21/20 20:41 Last Admin: 10/21/20 20:56 Dose: 30 ml Documented by: Enoxaparin Sodium (Enoxaparin 40 Mg/0.4 Ml Syringe) 40 mg SUBCUT Q24H [facility] Last Admin: 10/22/20 00:26 Dose: 40 mg Documented by: Enoxaparin Sodium (Enoxaparin 40 Mg/0.4 Ml Syringe) 40 mg SUBCUT Q24H [facility] Last Admin: 10/27/20 09:20 Dose: 40 mg Documented by: Hydrochlorothiazide (Hydrochlorothiazide 12.5 Mg Cap) 12.5 mg PO DAILY [facility] Last Admin: 10/27/20 09:20 Dose: 12.5 mg Documented by: Sodium Chloride (Normal Saline) 1,000 mls @ 999 mls/hr IV ASDIRECTED [facility] Last Admin: 10/21/20 21:00 Dose: 999 mls/hr Documented by: Sodium Chloride (Normal Saline) 1,000 mls @ 50 mls/hr IV ASDIRECTED [facility] Last Admin: 10/25/20 21:57 Dose: 75 mls/hr Documented by: Ceftriaxone Sodium 1 gm/ (Sodium Chloride) 50 mls @ 200 mls/hr IV Q24H [facility] Stop: 10/21/20 23:59 Last Admin: 10/22/20 07:32 Dose: Not Given Documented by: Potassium Chloride (Kcl In Water 20 Meq/100 Ml) 100 mls @ 50 mls/hr IV Q2H [facility] Stop: 10/25/20 11:59 Last Admin: 10/25/20 09:40 Dose: 50 mls/hr Documented by: Potassium Chloride (Kcl In Water 20 Meq/100 Ml) 100 mls @ 50 mls/hr IV Q2H [facility] Stop: 10/26/20 12:59 Last Admin: 10/26/20 11:30 Dose: 50 mls/hr Documented by: Sodium Chloride (Normal Saline) 1,000 mls @ 50 mls/hr IV ASDIRECTED [facility] Last Admin: 10/26/20 11:30 Dose: 50 mls/hr Documented by: Iopamidol (Iopamidol 755 Mg/Ml 75 Ml Bottle) 75 ml IV ONETIME ONE Stop: 10/21/20 21:12 Last Admin: 10/21/20 21:19 Dose: 75 ml Documented by: Ketorolac Tromethamine (Ketorolac 30 Mg/Ml Sdv) 30 mg IVPUSH NOW STA Stop: 10/21/20 20:39 Last Admin: 10/21/20 21:24 Dose: 30 mg Documented by: Ketorolac Tromethamine (Ketorolac 30 Mg/Ml Sdv) 30 mg IVPUSH Q6H PRN PRN Reason: Pain (moderate 4-6) Stop: 10/27/20 08:45 Last Admin: 10/26/20 04:05 Dose: 30 mg Documented by: Labetalol HCl (Labetalol 20 Mg/4 Ml Syringe) 20 mg IVPUSH NOW STA; Protocol Stop: 10/21/20 21:51 Last Admin: 10/21/20 21:55 Dose: 20 mg Documented by: Morphine Sulfate (Morphine 2 Mg/Ml Syringe) 2 mg IVPUSH NOW STA Stop: 10/21/20 20:39 Last Admin: 10/21/20 21:30 Dose: 2 mg Documented by: Morphine Sulfate (Morphine 2 Mg/Ml Syringe) Confirm Administered Dose 2 mg .ROUTE .STK-MED ONE Stop: 10/21/20 22:47 Last Admin: 10/21/20 22:44 Dose: 2 mg Documented by: Morphine Sulfate (Morphine 2 Mg/Ml Syringe) 2 mg IVPUSH Q2H PRN PRN Reason: Pain (severe 7-10) Last Admin: 10/22/20 20:28 Dose: 2 mg Documented by: Morphine Sulfate (Morphine 2 Mg/Ml Syringe) 2 mg IVPUSH ONETIME ONE Stop: 10/22/20 19:23 Last Admin: 10/21/20 22:46 Dose: 2 mg Documented by: Morphine Sulfate (Morphine 4 Mg/Ml Vial) 4 mg IVPUSH Q2H PRN PRN Reason: Pain (severe 7-10) Last Admin: 10/23/20 20:25 Dose: 4 mg Documented by: Ondansetron HCl (Ondansetron 4 Mg/2 Ml Sdv) 4 mg IVPUSH NOW STA Stop: 10/21/20 20:39 Last Admin: 10/21/20 21:11 Dose: 4 mg Documented by: Ondansetron HCl (Ondansetron 4 Mg/2 Ml Sdv) 4 mg IV Q4H PRN PRN Reason: Nausea/Vomiting Last Admin: 10/24/20 23:44 Dose: 4 mg Documented by: Sodium Chloride (Sodium Chloride 0.9% 10 Ml Syringe) 10 ml FLUSH ASDIRECTED PRN PRN Reason: Keep Vein Open Last Admin: 10/25/20 22:01 Dose: 10 ml Documented by: - Exam General: Reports: Alert, Oriented, Cooperative, No Acute Distress Lungs: Reports: Clear to Auscultation, Normal Respiratory Effort Cardiovascular: Reports: Regular Rate, Regular Rhythm GI/Abdominal Exam: Normal Bowel Sounds, Soft, No Distention, Tender (LLQ). No: Guarding Extremities: No Pedal Edema, Normal Capillary Refill
== END 2020-10-27 14:07 | disposition home or self-care (01) | DRG 390 ==
LOC: FB.ED 20:12 → FB.MS 23:39 → OBSVTOIN 10-23 10:07
PROVIDERS: ADMIT Emergency Medicine; ATTEND Family Medicine
PROC: 0D9670Z Drainage of Stomach with Drainage Device, Via Natural or Artificial Opening (ICD-10-PCS; principal; 2020-10-23)
DX: K56.600 Partial intestinal obstruction, unspecified as to cause (principal); N39.0 Urinary tract infection, site not specified; H91.93 Unspecified hearing loss, bilateral; R03.0 Elevated blood-pressure reading, without diagnosis of hypertension; I48.0 Paroxysmal atrial fibrillation; K21.9 Gastro-esophageal reflux disease without esophagitis; H91.90 Unspecified hearing loss, unspecified ear; I48.91 Unspecified atrial fibrillation; Z20.822 Contact with and (suspected) exposure to COVID-19; Z86.010 Personal history of colon polyps; Z90.710 Acquired absence of both cervix and uterus; Z90.721 Acquired absence of ovaries, unilateral; Z87.19 Personal history of other diseases of the digestive system; Z90.49 Acquired absence of other specified parts of digestive tract; Z86.018 Personal history of other benign neoplasm; Z79.82 Long term (current) use of aspirin; Z79.899 Other long term (current) drug therapy; Z97.4 Presence of external hearing-aid; Z90.89 Acquired absence of other organs; Z87.891 Personal history of nicotine dependence
CPT/HCPCS: 36415; 74177; 80048; 80053; 81001; 82150; 83690; 85025; 87086; 96372; 96374; 96375; 96376; 99285-25; A9270-GY; G0378; J0696; J1650; J1885; J2270; J2405; J3480; J3490; J7030; Q9967; U0002